=== PATIENT | male | born 1960 | race Caucasian/White ===

== ENCOUNTER → 2022-02-10 07:36 | Outpatient (REF) | payer OTHER, SELFPAY ==
--- NOTE | 2022-02-10 07:41 | CA_ITS ---
Transthoracic Echocardiogram Patient (Last, First, Middle): Abner Arriaga P Gender: Male Date of : 1960 Age: 62 Procedure Date: 02/10/2022 Procedure Type: Transthoracic Echocardiogram Location: OP Height: 172.72 cm Weight: 77.11 kg BSA: 1.91 m2 Heart Rate: bpm BP: 133 / 83 mmHg Quality Analyst: MEREDITH Referring MD: Jimmy Weaver [facility] Portfolio Analyst: Audie Tan MD Symptoms: R01.1 - Cardiac murmur, unspecified Study Quality: Adequate ECG Rhythm: Sinus Conclusions: - 1. Normal LV systolic function with impaired relaxation filling pattern 2. Mild aortic regurgitation secondary to ascending aortic pathology 3. Mildly dilated ascending aorta at 4.3 cm 4. Normal RV systolic pressure 5. No pericardial effusion Findings Left Ventricle Normal left ventricular size, thickness, and systolic function. The visually estimated ejection fraction is between 60-65%. Spectral Doppler is indicative of an impaired relaxation filling pattern. E/E prime ratio is between 8 and 15 consistent with indeterminate filling pressures. Right Ventricle Normal right ventricular cavity size and systolic function. Atria Both atria are normal in size. Interatrial shunt cannot be excluded. Aortic Valve Normal aortic valve structure and function. There is no aortic valve stenosis. There is mild aortic valve regurgitation. Mitral Valve Normal mitral valve structure and function. There is trace mitral valve regurgitation. There is no mitral valve stenosis. Pulmonic Valve The pulmonic valve is likely normal. Tricuspid Valve Likely normal tricuspid valve structure and function. There is trace tricuspid valve regurgitation. The right ventricular systolic pressure is normal. The right ventricular systolic pressure is 27 mmHg. Normal right atrial pressure. There is no evidence of pulmonary hypertension. Great Vessels The pulmonary artery was not well visualized. There is mild dilatation of the ascending aorta measuring 4.30 cm. Venous The inferior vena cava is normal in size and collapses greater than 50% with inspiration. Pericardium/Pleural There is no evidence of pericardial effusion. Prior Study Comparison No prior study available for comparison. Measurements 2D Linear Measurements IVSd: 0.86 0.6-0.9/0.6-1.0 cm LVIDd: 4.52 3.9-5.3/4.2-5.9 cm LVIDd Index: 2.37 2.4-3.2/2.2-3.1 cm/m2 LVIDs: 2.73 2.0-3.6 cm LVPWd: 0.92 0.7-1.1 cm LA Diam: 3.70 2.7-3.8/3.0-4.0 cm LAIDs Index: 1.94 1.5-2.3 cm/m2 LV Mass: 163.76 67-162/88-224 g LV Mass Index: 85.74 43-95/49-115 g/m2 LVOT Diam: 1.90 3.0+(-)1.3 cm 2D Systolic Function EF 4C: 59.80 >55% EF 2C: 70.60 >55% EF BiP: 62.50 >55% Mitral Valve MV Pk E: 0.93 MV PK A: 1.02 MV Decel Time: 204.00 E/A: 0.90 E'Lateral: 10.20 E'Medial: 7.51 E/E' Med: 12.30 E/E' Lat: 9.10 PHT: 60.00 MVA PHT: 3.67 Decel Mesa: 4.54 Aortic Valve AoV Pk Reinaldo: 1.45 AoV Mn Reinaldo: 0.89 AoV VTI: 0.34 AoV Pk Grad: 8.00 Aov Mn Grad: 4.00 PIYUSH Cont.VTI: 2.10 AI Pk Reinaldo: 4.63 AI Mesa: 1.65 LVOT LVOT Pk Reinaldo: 1.07 LVOT Mn Reinaldo: 0.66 LVOT VTI: 0.25 LVOT Pk Grad: 5.00 LVOT Mn Grad: 2.00 LVOT Diam: 1.90 LVOT Area: 2.84 Diastolic Function MV Pk E: 0.93 MV Pk A: 1.02 E/A: 0.90 E'Medial: 7.51 E/E' Med: 12.30 E' Laterial: 10.20 E/E' Lat: 9.10 Right Ventricle TAPSE (mm): 26.30 TVS' Reinaldo: 10.20 Tricuspid Valve TR Pk Reinaldo: 2.43 TR Pk Grad: 24.00 RA Press: 3.00 RVSP: 27.00 Great Vessels Aorta Sinus of Valsalva: 3.45 2.0-3.[address] [place]: 3.18 1.7-3.4 cm Ao Asc: 4.30 2.1-3.4 cm Ao Arch: 3.30 Updated in Other Vendor System with Status of Final Audie Tan MD electronically signed on 02/10/2022 11:37:46 AM with status of Final
== END ==
LOC: HO.CARD 07:36
PROVIDERS: Visit Provider Nurse Practitioner Family
DX: R01.1 Cardiac murmur, unspecified (principal)
CPT/HCPCS: 93306

== ENCOUNTER 2022-09-30 09:05 | Outpatient (REF) | payer OTHER, SELFPAY ==
[2022-09-30 11:03] LABS: Appearance Urine Clear; Color Urine Yellow; Glucose Urine UA Negative (Negative); Leukocyte Esterase Urine Negative (Negative); Nitrite Urine Negative (Negative); PH 7.5 (5.0-9.0); Specific Gravity - Urine <= 1.005 (1.005-1.025); Urine Blood Negative (Negative); Urine Ketones Negative (Negative); Urine Protein Negative (Neg-Trace)
[2022-09-30 11:11] LABS: MANUAL DIFF FLAG NO
[2022-09-30 11:40] LABS: Basophils Percent Auto 0.9 % (0-2); Eosinophils Absolute Auto 0.2 X10*3/uL (0.0-0.4); Hematocrit 46.5 % (42.0-52.0); Hemoglobin 15.6 g/dl (14.0-18.0); Imm Gran Abs Auto 0.01 X10*3/uL (0.00-0.03); Imm Gran Pct Auto 0.2 % (0.0-0.4); Lymphocytes Absolute Auto 1.7 X10*3/uL (1.2-4.9); Lymphocytes Percent Auto 39.6 % (20-40); Mean Corpuscular HGB Conc 33.5 g/dl (31.0-36.0); Mean Corpuscular Hemoglobin 32.2 pg (27.0-33.0); Mean Corpuscular Volume 96.1 fL (80.0-98.0); Mean Platelet Volume 9.8 fL (9.4-12.4); Monocytes Absolute Auto 0.4 X10*3/uL (0.1-1.2); Neutrophils Absolute Auto 1.9 x10*3/uL (2.0-8.3); Neutrophils Percent Auto 44.3 % (45-73); Platelet Count 258 X10*3/uL (160-400); Red Blood Count 4.84 X10*6/uL (4.60-5.80); Red Cell Distribution Width 12.3 % (11.0-16.0); White Blood Count 4.2 X10*3/uL (4.8-10.8)
[2022-09-30 12:01] LABS: Alanine Aminotransferase 52 U/L (0-40); Albumin Level 4.7 g/dL (3.5-5.0); Alkaline Phosphatase 47 U/L (39-117); Anion Gap 14 (12-20); Aspartate Amino Transferase 36 U/L (5-37); Bilirubin Total 1.3 mg/dL (0.0-1.0); Blood Urea Nitrogen 14 mg/dL (9-16); Calcium 9.3 mg/dL (8.4-10.2); Carbon Dioxide 27 mmol/L (22-29); Chloride 104 mmol/L (96-108); Cholesterol 240 mg/dL; Estimated Glomerular Filt Rate > 60; Glucose Fasting 96 mg/dL (60-99); HDL Cholesterol 50 mg/dL; LDL Cholesterol Calculated 170 mg/dl; Potassium 4.9 mmol/L (3.3-5.1); Sodium 140 mmol/L (135-145); Total Protein 7.1 g/dL (6.5-8.0); Triglycerides 101 mg/dL
[2022-09-30 12:05] LABS: Prostate Specific Antigen Scr 1.69 ng/mL (<0.05-4.0); TSH reflex Free T4 1.85 uIU/mL (0.32-4.0)
== END 2022-09-30 09:06 | disposition home or self-care (01) ==
LOC: HO.HMGCLDS 09:05
PROVIDERS: PCP Nurse Practitioner Family; Visit Provider Nurse Practitioner Family
DX: Z00.00 Encounter for general adult medical examination without abnormal findings (principal); Z12.5 Encounter for screening for malignant neoplasm of prostate; E78.5 Hyperlipidemia, unspecified; I10 Essential (primary) hypertension
CPT/HCPCS: 36415; 80053; 80061; 81003; 84153; 84443; 85025

== ENCOUNTER 2022-10-09 08:47 | Outpatient (REF) | payer OTHER, SELFPAY ==
--- NOTE | ~2022-10-09 | US_ITS ---
EXAMINATION: US ABDOMEN COMPLETE CLINICAL INFORMATION: Elevated liver enzymes. COMPARISON: None available. TECHNIQUE: Real-time imaging of the abdominal viscera. FINDINGS: PANCREAS: The head and body appear normal. Details obscured by bowel gas. ABDOMINAL AORTA: Mild atherosclerosis. No aneurysm. INFERIOR VENA CAVA: Visualized portions are normal. LIVER: The liver is normal in size. The liver contour is normal. There is diffuse increased liver parenchymal echogenicity, consistent with hepatic steatosis. There is a 1.4 cm mass in the inferior left hepatic lobe of uncertain etiology. There is no intrahepatic biliary duct dilatation seen. GALLBLADDER: Normal. The gallbladder is physiologically distended without evidence of stones, sludge, wall thickening or pericholecystic fluid. COMMON BILE DUCT: Normal in caliber measuring 0.35 cm in diameter. RIGHT KIDNEY: Normal. No hydronephrosis. No renal calculi or focal parenchymal lesions. The kidney measures 11.4 cm in maximum dimension. LEFT KIDNEY: Normal. No hydronephrosis. No renal calculi or focal parenchymal lesions. The kidney measures 10.5 cm in maximum dimension. SPLEEN: Normal. The spleen measures 10.2 cm in maximum dimension. FREE FLUID: None. US/US abdomen complete IMPRESSION: Fatty liver. 1.4 cm mass inferior left hepatic lobe of uncertain etiology. It is not a simple cyst. Recommend further evaluation with MRI abdomen without and with contrast.
== END 2022-10-09 08:48 | disposition home or self-care (01) ==
LOC: HO.HMGCX 08:47
PROVIDERS: PCP Nurse Practitioner Family; Visit Provider Nurse Practitioner Family
DX: R74.8 Abnormal levels of other serum enzymes (principal)
CPT/HCPCS: 76700

== ENCOUNTER 2022-10-21 08:01 | Outpatient (REF) | payer OTHER, SELFPAY ==
--- NOTE | ~2022-10-21 | MR_ITS ---
EXAMINATION: MR ABDOMEN WITHOUT AND WITH CONTRAST CLINICAL INFORMATION: Hepatomegaly and elevated liver enzymes. Follow-up liver lesion seen on ultrasound. COMPARISON: Abdominal ultrasound September 2022 TECHNIQUE: MR abdomen was performed without and with use of 8 mL intravenous Gadavist gadolinium contrast. Postcontrast images are performed in multiphase dynamic sequences. Imaging was performed in 3 planes. FINDINGS: LUNG BASES: The visualized lung bases are unremarkable. LIVER, GALLBLADDER, AND BILIARY TREE: The liver is normal in size and contour. There is signal loss in the liver on out of phase sequences suggestive of mild fatty infiltration. There is focal fatty sparing seen in the periportal region and adjacent to the gallbladder. There are 3 liver lesions suggestive of benign hemangiomas. These are low signal on T1, high signal on T2 weighted sequences and demonstrate delayed peripheral puddling enhancement. These measure 1.4 cm high in the left lobe of the liver, 2.3 x 2 cm in the posterior segment of the right lobe of the liver near the caudate lobe and 1 cm in the lateral segment of the left lobe of the liver near the falciform ligament. There are probably additional smaller hemangiomas, for example 3 x 7 mm in the posterior segment of the right lobe axial image 27 series 102 postcontrast and medial segment of the left lobe of the liver near the also performed recommend measuring 4 mm for example axial image 34 postcontrast. No suspicious liver lesion. Normal gallbladder. No biliary duct dilatation. PANCREAS: Unremarkable. SPLEEN: Normal. ADRENAL GLANDS: Normal. KIDNEYS AND URETERS: There are bilateral renal cysts. Largest cyst is a 1 x 1.5 cm peripelvic cyst in the upper pole of the left kidney. No imaging follow-up recommended. The kidneys are otherwise normal. GASTROINTESTINAL TRACT: No bowel obstruction. No ascites or fluid collection. ABDOMINAL WALL: No significant hernia is appreciated. LYMPH NODES: No lymphadenopathy. VASCULAR: Unremarkable. OSSEOUS STRUCTURES: Marrow signal normal. MR/MR abdomen wo/w con IMPRESSION: Mild fatty infiltration of the liver. Multiple liver hemangiomas. No suspicious liver lesion seen.
== END 2022-10-21 08:02 | disposition home or self-care (01) ==
LOC: HO.MRI 08:01
PROVIDERS: PCP Nurse Practitioner Family; Visit Provider Nurse Practitioner Family
DX: R16.0 Hepatomegaly, not elsewhere classified (principal)
CPT/HCPCS: 74183; A9585

== ENCOUNTER 2023-01-28 07:27 | Outpatient (AMB) | payer OTHER, SELFPAY ==
[2023-01-28 07:38] VITALS: BP 162/80; PULSE 56; O2SAT 96; BMI 26.4
--- NOTE | 2023-01-28 07:38 | MHC.PC.OV ---
Vital Signs 01/28/23 07:38 Height 5 ft 8 in Weight 173 lb 6 oz BMI 26.4 BP 162/80 H Blood Pressure Location Rt brachial Position Sitting Pulse 56 Pulse Source Pulse Oximeter Pulse Oximetry (%) 96 Oxygen Delivery Method Room Air Intake Visit Reasons: PE Allergies No Known Allergies Allergy (Verified 01/28/23 08:38) Medication List - Last Reconciled 01/28/23 by Jimmy Weaver, [employer]- rosuvastatin 5 mg PO DAILY Tobacco use date assessed: 01/27/22 HPI PE HPI Details Pt is here for a PE. Will order labs. Colon screen is up to date. PSA is up to date. HTN: Pt reports that his blood pressure is in the 130s/70s at home. Denies chest pain, shortness of breath, headache, dizziness, and blurred vision. PFSH Social History Housing: House Patient Tobacco Use Status: Never used Tobacco e-Cigarette/Vaping Use: Never Used Second Hand Smoke Exposure: No service: No Current occupational status: employed Current occupation: [employer] Current occupational exposures/hazards: Yes Cognitive needs: No Hearing needs: No Vision needs: No Questionnaire Thrive Questionnaire Date Thrive assessed: 01/27/22 GILDARDO-7 AMB Questionnaire GILDARDO-7 Date GILDARDO - 7 assessed: 01/27/22 Source: Developed by Drs. Yovany Prather, Caitlyn Landis, Josué Pretty and colleagues, with an educational vernon from [employer]. Review of Systems Const Denies chills and Denies fever(s) Eyes Denies blurry vision ENT Denies vertigo, Denies dizziness and Denies sore throat Card Denies chest pain at rest, Denies chest pain with activity, Denies diaphoresis, Denies dyspnea and Denies dyspnea on exertion Resp Denies cough, Denies dyspnea, Denies dyspnea on exertion and Denies wheezing GI Denies abdominal pain, Denies melena, Denies hematochezia, Denies constipation, Denies diarrhea and Denies loose stools Denies hematuria Musc Denies numbness and Denies tingling Skin/Breast Denies lesions Neuro Denies vertigo, Denies dizziness, Denies numbness and Denies tingling Psych Denies anxiety, Denies depression, Denies homicidal ideation, Denies suicidal ideation and Denies other (substance abuse) Aller/Immun Denies wheezing Physical exam (Primary Care) Vital Signs: Last Vital Signs Pulse 56 01/28/23 07:38 BP 162/80 H 01/28/23 07:38 Pulse Ox 96 01/28/23 07:38 Oxygen Delivery Method Room Air 01/28/23 07:38 BMI result Body Mass Index 26.4 Tobacco/Smoking Status: Tobacco use Status Tobacco use date assessed 01/27/22 01/28/23 07:45 Patient Tobacco Use Status Never used Tobacco 01/28/23 07:45 e-Cigarette/Vaping Use Never Used 01/28/23 07:45 Thrive Assessment: Date of Thrive Assessment Date Thrive assessed 01/27/22 01/28/23 07:45 Const General: cooperative Nutritional Appearance: well nourished Orientation/consciousness: patient oriented x3 HENMT Head: Yes normal to inspection, Yes normocephalic and Yes atraumatic Ears: TM's normal bilaterally Eyes General: appearance normal, both eyes and all related structures Alignment and Position: alignment normal and position normal Neck Neck: Yes normal visual inspection and Yes no lymphadenopathy Thyroid: Thyroid normal Resp Effort & Inspection: normal respiratory effort Auscultation: clear to auscultation bilaterally Cardio Rate: regular rate Rhythm: regular rhythm Heart sounds: S1 normal heart sound present, S2 normal heart sound present and Murmur heart sound present systolic GI Palpation (GI): Soft to palpation and nontender Auscultation: normal bowel sounds Male General Exam: Yes normal external exam Penis: normal penis Scrotum: scrotum normal, testes descended bilaterally and no inguinal hernias Testes: no testicular mass Skin Rashes: no rashes Neuro General: patient oriented x3, moves all extremities, no focal motor deficits and deep tendon reflexes 2+ bilaterally Romberg Test: Negative Psych Appearance: grossly normal Mental Status: mental status grossly normal Speech and movement: Normal speech and movement present Affect: normal affect Attitude: cooperative Thought process: Normal thought process present Thought content: Normal thought content present Insight: Good insight present (Psych) Judgement: Good judgement present (Psych) Assessment and Plan Assessment & Plan (1) Physical exam: Code(s): Z00.00 - Encounter for general adult medical examination without abnormal findings Plan: Labs ordered (2) HTN (hypertension): Code(s): I10 - Essential (primary) hypertension (3) Aortic dilatation: Code(s): I77.819 - Aortic ectasia, unspecified site (4) Systolic murmur: Code(s): R01.1 - Cardiac murmur, unspecified Plan The patient agreed to the use of a pediatrician/medical doctor for this encounter. Scribed for RONDA Chan by Briseida العلي pediatrician/medical doctor, on 01/28/2023 at 07:55 EST. Orders: Orders Comprehensive [place]. Panel Fast Today Z00.00 - Encounter for general adult medical examination without abnormal findings Lipid Panel Today Z00.00 - Encounter for general adult medical examination without abnormal findings TSH reflex Free T4 Today Z00.00 - Encounter for general adult medical examination without abnormal findings Complete Blood Count Auto Diff Today Z00.00 - Encounter for general adult medical examination without abnormal findings UA CC w/rflx Micro + Cult Today Z00.00 - Encounter for general adult medical examination without abnormal findings CA echo transthoracic complete 11 Months I10 - Essential (primary) hypertension, I77.819 - Aortic ectasia, unspecified site, R01.1 - Cardiac murmur, unspecified Coding Level of Care Code Est Pt Prev Care 40-64y([id number]) Diagnoses Physical exam Z00.00 HTN (hypertension) I10 Aortic dilatation I77.819 Systolic murmur R01.1
== END 2023-01-28 08:05 | disposition home or self-care (01) ==
PROVIDERS: Visit Provider Nurse Practitioner Family
DX: Z00.00 Encounter for general adult medical examination without abnormal findings (principal); I10 Essential (primary) hypertension; I77.819 Aortic ectasia, unspecified site; R01.1 Cardiac murmur, unspecified
CPT/HCPCS: 99396

== ENCOUNTER 2023-01-28 08:05 | Outpatient (REF) | payer OTHER, SELFPAY ==
[2023-01-28 11:19] LABS: MANUAL DIFF FLAG NO
[2023-01-28 11:29] LABS: Appearance Urine Clear; Color Urine Yellow; Glucose Urine UA Negative (Negative); Leukocyte Esterase Urine Negative (Negative); Nitrite Urine Negative (Negative); PH 5.5 (5.0-9.0); UMIC TRIGGER UACC YES; Urine Blood Trace (Negative); Urine Ketones Negative (Negative); Urine Protein Negative (Neg-Trace)
[2023-01-28 11:33] LABS: Bacteria Urine None Seen (None Seen); Hyaline Casts Urine 0-2 /LPF (0-2); RBC Urine 0-2 /HPF (0-2); Squamous Epithelial Cell Urine 0-2 /HPF (0-2); WBC Urine 0-5 /HPF (0-5)
[2023-01-28 11:34] LABS: Basophils Percent Auto 0.9 % (0-2); Eosinophils Absolute Auto 0.2 X10*3/uL (0.0-0.4); Eosinophils Percent Auto 3.8 % (0-4); Hemoglobin 15.1 g/dl (14.0-18.0); Imm Gran Abs Auto 0.01 X10*3/uL (0.00-0.03); Imm Gran Pct Auto 0.2 % (0.0-0.4); Lymphocytes Absolute Auto 1.7 X10*3/uL (1.2-4.9); Lymphocytes Percent Auto 36.8 % (20-40); Mean Corpuscular HGB Conc 33.6 g/dl (31.0-36.0); Mean Corpuscular Hemoglobin 31.5 pg (27.0-33.0); Mean Corpuscular Volume 93.8 fL (80.0-98.0); Mean Platelet Volume 9.7 fL (9.4-12.4); Monocytes Absolute Auto 0.4 X10*3/uL (0.1-1.2); Monocytes Percent Auto 7.5 % (2-11); Neutrophils Absolute Auto 2.4 x10*3/uL (2.0-8.3); Neutrophils Percent Auto 50.8 % (45-73); Platelet Count 269 X10*3/uL (160-400); Red Cell Distribution Width 11.9 % (11.0-16.0); White Blood Count 4.7 X10*3/uL (4.8-10.8)
[2023-01-28 12:07] LABS: Alanine Aminotransferase 35 U/L (0-40); Albumin Level 4.5 g/dL (3.5-5.0); Alkaline Phosphatase 45 U/L (39-117); Anion Gap 12 (12-20); Aspartate Amino Transferase 31 U/L (5-37); Bilirubin Total 1.1 mg/dL (0.0-1.0); Blood Urea Nitrogen 16 mg/dL (9-16); Calcium 9.4 mg/dL (8.4-10.2); Carbon Dioxide 27 mmol/L (22-29); Chloride 105 mmol/L (96-108); Cholesterol 189 mg/dL; Estimated Glomerular Filt Rate > 60; Glucose Fasting 85 mg/dL (60-99); HDL Cholesterol 47 mg/dL; LDL Cholesterol Calculated 121 mg/dl; Potassium 4.1 mmol/L (3.3-5.1); Sodium 140 mmol/L (135-145); Total Protein 7.3 g/dL (6.5-8.0); Triglycerides 108 mg/dL
[2023-01-28 12:30] LABS: TSH reflex Free T4 2.07 uIU/mL (0.32-4.0)
== END 2023-01-28 08:06 | disposition home or self-care (01) ==
LOC: HO.HMGCLDS 08:05
PROVIDERS: PCP Nurse Practitioner Family; Visit Provider Nurse Practitioner Family
DX: Z00.00 Encounter for general adult medical examination without abnormal findings (principal); E78.5 Hyperlipidemia, unspecified; R31.29 Other microscopic hematuria
CPT/HCPCS: 36415; 80053; 80061; 81001; 84443; 85025

== ENCOUNTER 2023-03-20 08:28 | Outpatient (REF) | payer OTHER, SELFPAY | END 2023-03-20 08:29 | disposition home or self-care (01) | LOC: HO.HMGCLDS 08:28 | PROVIDERS: PCP Nurse Practitioner Family; Visit Provider Nurse Practitioner Family | DX: R31.29 Other microscopic hematuria (principal) | CPT/HCPCS: 81001; 87086; 88112 ==

== ENCOUNTER → 2023-04-23 08:16 | Outpatient (REF) | payer OTHER, SELFPAY ==
--- NOTE | 2023-04-23 08:18 | CA_ITS ---
Transthoracic Echocardiogram Patient (Last, First, Middle): Abner Arriaga P Gender: Male Date of : 1960 Age: 63 Procedure Date: 04/23/2023 Procedure Type: Transthoracic Echocardiogram Location: OP Height: 172.72 cm Weight: 77.11 kg BSA: 1.91 m2 Heart Rate: 50 bpm BP: 124 / 80 mmHg Vp Strategy: SB Referring MD: Jimmy Weaver [facility] Plant Protection Officer: Audie Tan MD Symptoms: I77.819 - Aortic ectasia, unspecified site Study Quality: Adequate ECG Rhythm: Bradycardia Conclusions: - 1. Normal LV ejection fraction of 60 65% with grade 1 diastolic dysfunction 2. Mild aortic regurgitation 3. Mildly dilated ascending aorta at 4.3 cm 4. Normal RV systolic pressure 5. No pericardial effusion Findings Left Ventricle Normal left ventricular size, thickness, and systolic function. The visually estimated ejection fraction is between 60-65%. Spectral Doppler is indicative of an impaired relaxation filling pattern. E/E prime ratio is <8, consistent with normal filling pressures. Evidence suggests grade I (mild) diastolic dysfunction. Right Ventricle Normal right ventricular cavity size and systolic function. Atria The left atrium is likely dilated. Interatrial shunt cannot be excluded. The right atrium is normal in size. Aortic Valve There is mild calcification of the aortic valve. There is no aortic valve stenosis. There is mild aortic valve regurgitation. Mitral Valve Normal mitral valve structure and function. There is trace mitral valve regurgitation. There is no mitral valve stenosis. Pulmonic Valve The pulmonic valve is likely normal. Tricuspid Valve Normal tricuspid valve structure. There is mild tricuspid valve regurgitation. The right ventricular systolic pressure is normal. The right ventricular systolic pressure is 27 mmHg. Normal right atrial pressure. Great Vessels The pulmonary artery was not well visualized. There is mild dilatation of the ascending aorta measuring 4.30 cm. Venous The inferior vena cava is normal in size and collapses greater than 50% with inspiration. Pericardium/Pleural There is no evidence of pericardial effusion. Prior Study Comparison No significant change compared to prior study dated: 02/10/2023. Measurements 2D Linear Measurements IVSd: 0.99 0.6-0.9/0.6-1.0 cm LVIDd: 4.29 3.9-5.3/4.2-5.9 cm LVIDd Index: 2.25 2.4-3.2/2.2-3.1 cm/m2 LVIDs: 3.04 2.0-3.6 cm LVPWd: 0.83 0.7-1.1 cm LA Diam: 3.90 2.7-3.8/3.0-4.0 cm LAIDs Index: 2.04 1.5-2.3 cm/m2 LV Mass: 186.96 67-162/88-224 g LV Mass Index: 97.88 43-95/49-115 g/m2 LVOT Diam: 2.00 3.0+(-)1.3 cm 2D Systolic Function EF 4C: 59.80 >55% Mitral Valve MV Pk E: 0.71 MV PK A: 0.82 MV Decel Time: 246.00 E/A: 0.90 E'Lateral: 9.46 E'Medial: 7.72 E/E' Med: 9.20 E/E' Lat: 7.50 PHT: 72.00 MVA PHT: 3.06 Decel Deuel: 2.89 Aortic Valve AoV Pk Reinaldo: 1.45 AoV Mn Reinaldo: 0.92 AoV VTI: 0.33 AoV Pk Grad: 8.00 Aov Mn Grad: 4.00 PIYUSH Cont.VTI: 2.39 AI Pk Reinaldo: 4.80 AI Deuel: 1.76 LVOT LVOT Pk Reinaldo: 1.13 LVOT Mn Reinaldo: 0.72 LVOT VTI: 0.25 LVOT Pk Grad: 5.00 LVOT Mn Grad: 3.00 LVOT Diam: 2.00 LVOT Area: 3.14 Diastolic Function MV Pk E: 0.71 MV Pk A: 0.82 E/A: 0.90 E'Medial: 7.72 E/E' Med: 9.20 E' Laterial: 9.46 E/E' Lat: 7.50 Right Ventricle TAPSE (mm): 24.80 TVS' Reinaldo: 11.20 Tricuspid Valve TR Pk Reinaldo: 2.46 TR Pk Grad: 24.00 RA Press: 3.00 RVSP: 27.00 Great Vessels Aorta Sinus of Valsalva: 3.60 2.0-3.5 cm Ao Asc: 4.30 2.1-3.4 cm Ao Arch: 3.40 Ao Desc: 1.50 Pulmonary Veins Pulm Vein S/D 1.40 Pulmonary Valve PV Pk Reinaldo: 2.11 PV Min Reinaldo: 1.30 Peak PV Grad: 18.00 PV Mn Grad: 8.00 Shunting QP:QS: 0.80 Updated in Other Vendor System with Status of Final Audie Tan MD electronically signed on 04/24/2023 1:13:12 PM with status of Final
== END ==
LOC: HO.CARD 08:16
PROVIDERS: PCP Nurse Practitioner Family; Visit Provider Nurse Practitioner Family
DX: R01.1 Cardiac murmur, unspecified (principal); I10 Essential (primary) hypertension; I77.819 Aortic ectasia, unspecified site
CPT/HCPCS: 93306

== ENCOUNTER → 2023-04-23 08:18 | Outpatient (BNV) | payer OTHER, SELFPAY | PROVIDERS: PCP Nurse Practitioner Family; Visit Provider Internal Medicine Cardiovascular Disease | DX: I35.1 Nonrheumatic aortic (valve) insufficiency (principal) | CPT/HCPCS: 93306 ==

== ENCOUNTER 2023-04-27 08:55 | Outpatient (AMB) | payer OTHER, SELFPAY ==
--- NOTE | 2023-04-27 08:55 | MHC.OFFVIS ---
Intake Intake Visit Reasons: Other microscopic hematuria Intake Note: New Patient presents for initial visit for microscopic hematuria Urology Medications: none Blood Thinner: none Emt Intermediate Required: No Accompanied by: Self / Same As Patient Allergies No Known Allergies Allergy (Verified 04/27/23 09:26) Medication List - Last Reconciled 04/27/23 by RONDA Barajas rosuvastatin 5 mg PO DAILY HPI HPI Comments History of Present Illness Details Abner is a very pleasant 63-year-old male patient of Dr. Smith. He has a past medical history of dyslipidemia. He presents to the office today as a new patient for microscopic hematuria. In discussion with the patient today reports to be doing and feeling well. He reports having had two urinalysis's one noting microscopic hematuria at which time recommendations were made for urology referral for further assessment evaluation. In assessment of the patient today 1+ microscopic hematuria noted on in office urinalysis. Discussed at length potential causes of microscopic hematuria. Patient denies any known workplace chemical exposure and or smoking history. He denies any bothersome urinary issues or concerns. He denies urinary urgency, urinary frequency, incontinence, nocturia, hematuria, dysuria, foul smelling urine, changes to urinary stream, flank pain, fever, and or chills. He is happy with his current voiding parameters. Discussed further microscopic hematuria workup with imaging, cytology, and in office cystoscopy for further assessment evaluation. In review of patient's chart it appears PSA 10/05--1.7. He discusses losing his mom approximately 20 years ago to bone cancer. 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 He otherwise offers no other issues or concerns at this time. [facility] Social History Housing: House Patient Tobacco Use Status: Never used Tobacco e-Cigarette/Vaping Use: Never Used Second Hand Smoke Exposure: No service: No Current occupational status: employed Current occupation: [employer] Current occupational exposures/hazards: Yes Cognitive needs: No Hearing needs: No Vision needs: No Review of Systems Const All systems reviewed & are unremarkable except as noted in HPI and below Eyes Reports no additional complaints ENT Reports no additional complaints Card Reports as per HPI Resp Reports no additional complaints GI Details: Patient reports having had recent imaging related to liver mass however MRI showed liver hemangioma Reports as per HPI Musc Reports no additional complaints Neuro Reports no additional complaints Psych Reports no additional complaints Endo Reports no additional complaints Leland/Lymph Reports no additional complaints Aller/Immun Reports no additional complaints Physical Exam Const General: cooperative, healthy appearing, comfortable, no acute distress, well developed, alert and awake Orientation/consciousness: patient oriented x3 Limitations: no limitations HEENT Head: Yes normal to inspection, Yes normocephalic and Yes atraumatic Ears: hearing grossly normal bilaterally Eyes General: appearance normal, both eyes and all related structures Neck Neck: Yes normal visual inspection and Yes trachea midline Chest Chest palpation & inspection: normal inspection of the chest Resp Effort & Inspection: normal respiratory effort and able to speak in complete sentences Cardio Rate: regular rate GI Inspection: Yes normal to inspection General: Yes no CVA tenderness Back/Spine/Pelvis Back: no CVA tenderness Skin General skin exam: no rashes or lesions noted Neuro General: patient oriented x3 Extrem General: Yes normal to inspection Psych Appearance: grossly normal and well kempt Mental Status: mental status grossly normal Speech and movement: Normal speech and movement present and Clear speech present Affect: normal affect Attitude: cooperative Thought process: Normal thought process present Thought content: Normal thought content present Insight: Good insight present (Psych) Judgement: Good judgement present (Psych) Results AMB Urinalysis, Automated UA Leukoctes 0 Meredith/uL Last Edit by [facility] on 04/27/23 09:11 UA Nitrite Negative Last Edit by [facility] on 04/27/23 09:11 UA Urobilinogen 0.2 mg/dL Last Edit by [facility] on 04/27/23 09:11 UA Protein 0 mg/dL Last Edit by [facility] on 04/27/23 09:11 UA pH 6.0 Last Edit by [facility] on 04/27/23 09:11 UA Blood 25 Jignesh/uL Last Edit by [facility] on 04/27/23 09:11 UA Specific [place] 1.015 Last Edit by [facility] on 04/27/23 09:11 UA Ketone Negative Last Edit by [facility] on 04/27/23 09:11 UA Bilirubin 0 mg/dL Last Edit by Yari Billings on 04/27/23 09:11 UA Glucose 0 mg/dL Last Edit by Yari Billings on 04/27/23 09:11 Results Reviewed Results Reviewed: Laboratory Last Values Urine pH (Auto) 6.0 04/27/23 08:56 Specific [place] (Auto) 1.015 04/27/23 08:56 Urine Protein (Auto) 0 mg/dL 04/27/23 08:56 Glucose (UA)(Auto) 0 mg/dL 04/27/23 08:56 Urine Ketones (Auto) Negative 04/27/23 08:56 Urine Blood (Auto) 25 Jignesh/uL 04/27/23 08:56 Urine Nitrite (Auto) Negative 04/27/23 08:56 Urine Bilirubin (Auto) 0 mg/dL 04/27/23 08:56 Urine Urobilinogen (Auto) 0.2 mg/dL 04/27/23 08:56 Leukocyte Esterase (Auto) 0 Meredith/uL 04/27/23 08:56 Assessment & Plan Assessment & Plan (1) Microscopic hematuria: Code(s): R31.29 - Other microscopic hematuria Plan In office urinalysis results reviewed with the patient today; as noted above; will send for urine cytology. Discussed at length potential causes of microscopic hematuria. Discussed further microscopic hematuria workup with imaging, cytology, and in office cystoscopy for further assessment evaluation. Will move forward with imaging and cytology at this time patient will think about in office cystoscopy Patient denies any bothersome urinary issues or concerns at this time. Patient reports be happy with current voiding parameters. Follow-up in 6-8 weeks with imaging to be completed prior; or sooner with any issues, concerns, and or questions. Orders: Orders Urine Cytology Today R31.29 - Other microscopic hematuria AMB Urinalysis Automated Today Z13.9 - Encounter for screening, unspecified US retroperitoneal comp Today R31.29 - Other microscopic hematuria Patient Instructions: The patient had an opportunity to ask questions regarding the treatment plan. All questions were answered. Physical exam, labs, and imaging were discussed and reviewed in detail. As well as risks, benefits, and discussion of treatment choices. No major barriers to understanding were identified. The patient expressed understanding and agreement with the above treatment plan. The patient was made aware they should contact our office by phone for worsening of their current condition, the appearance of new symptoms, or with any questions or concerns. Compliance is encouraged with any medications and follow up testing that is ordered. It is a privilege to be allowed the opportunity to participate in? your urological care.? Again, if you have any questions or concerns If you have any questions or concerns please do not hesitate to contact me. The office is [phone]. This note is constructed using voice recognition software. While every effort has been made to ensure accuracy wine cellar worker errors may have been included. Yours sincerely, RONDA Barajas Coding Level of Care Code New Pt Level 3 (69944) Diagnoses Microscopic hematuria R31.29
== END 2023-04-27 09:28 | disposition home or self-care (01) ==
PROVIDERS: PCP Nurse Practitioner Family; Visit Provider Nurse Practitioner Family
DX: Z13.9 Encounter for screening, unspecified (principal); R31.29 Other microscopic hematuria
CPT/HCPCS: 99203

== ENCOUNTER 2023-04-27 08:55 | Outpatient (REF) | payer OTHER, SELFPAY ==
[2023-04-27 16:33] LABS: Urine Cytology See Pathology rpt
== END 2023-04-27 08:56 | disposition home or self-care (01) ==
LOC: HO.LNP 08:55
PROVIDERS: PCP Nurse Practitioner Family; Visit Provider Nurse Practitioner Family
DX: R31.29 Other microscopic hematuria (principal)
CPT/HCPCS: 81003; 88112

== ENCOUNTER 2023-06-10 08:05 | Outpatient (REF) | payer OTHER, SELFPAY ==
--- NOTE | ~2023-06-10 | US_ITS ---
EXAMINATION: US RETROPERITONEAL COMPLETE (RENAL) CLINICAL INFORMATION: Other microscopic hematuria. COMPARISON: MRI abdomen 10/21/2022. Ultrasound abdomen complete 10/09/2022. TECHNIQUE: Real-time imaging of the kidneys and bladder. FINDINGS: RIGHT KIDNEY: 11.2 x 6.6 x 6.8 cm (SAG x AP x TRV). The kidney is normal in size, contour, and echogenicity. Renal cortical thickness is normal. No calculi or focal parenchymal lesions. No hydronephrosis. LEFT KIDNEY: 10.0 x 5.6 x 4.5 cm (SAG x AP x TRV). The kidney is normal in size, contour, and echogenicity. Renal cortical thickness is normal. No renal calculi or hydronephrosis. 2 benign Bosniak class I renal cysts are noted, the largest measuring only 1.4 cm which require no additional imaging or follow-up. No solid renal masses are seen. BLADDER: Well distended and normal. Bilateral ureteral jets are demonstrated. Prevoid bladder volume is 316 mL. Postvoid bladder volume is 30.3 mL. PROSTATE: Prostate is enlarged measuring 66 mL. ADDITIONAL FINDINGS: Incidental note is made of an echogenic liver consistent with hepatic steatosis. US/US retroperitoneal comp IMPRESSION: 1. Enlarged 66 mL prostate with 30 mL postvoid residual. 2. Incidentally noted hepatic steatosis.
== END 2023-06-10 08:06 | disposition home or self-care (01) ==
LOC: HO.HMGCX 08:05
PROVIDERS: PCP Nurse Practitioner Family; Visit Provider Nurse Practitioner Family
DX: R31.29 Other microscopic hematuria (principal)
CPT/HCPCS: 76770

== ENCOUNTER 2023-06-17 08:27 | Outpatient (AMB) | payer OTHER, SELFPAY ==
--- NOTE | 2023-06-17 08:35 | MHC.OFFVIS ---
Intake Intake Visit Reasons: 7w/US Intake Note: Patient presents for follow up visit for microscopic hematuria and ultrasound results (imaging 06/10/23) Urology Medications: none Blood Thinner: none Mason Tender Required: No Accompanied by: Self / Same As Patient Allergies No Known Allergies Allergy (Verified 06/17/23 20:58) Medication List - Last Reconciled 06/17/23 by Dinah Quiros POT FEEDER- rosuvastatin 5 mg PO DAILY HPI HPI Comments History of Present Illness Details Abner is a very pleasant 63-year-old male patient of Dr. Smith. He has a past medical history of dyslipidemia. He presents to the office today for follow-up of his microscopic hematuria. Of note, patient was seen approximately 6 weeks ago as a new patient for microscopic hematuria at which time a retroperitoneal ultrasound was ordered and urine was sent for cytology. These results were reviewed with the patient today. Right kidney with no calculi, lesions, and or hydronephrosis noted. Left kidney with no calculi or hydronephrosis. Two benign Bosniak class 1 renal cysts are noted, the largest measuring approximately 1.4 cm which requires no additional follow-up per radiology report. The bladder is well distended and normal. Bilateral ureteral jets are demonstrated. Pre void bladder volume is approximately 315 mL. Postvoid bladder volume is approximately 30 mL. Prostate is enlarged measuring approximately 66 mL. In discussion with the patient today reports to be doing and feeling well. Discussed at length potential causes for microscopic hematuria and further workup with in office cystoscopy versus surveillance monitoring. Cytology 05/07 noted atypical cells cytology from 04/06 negative for high-grade urethral cell carcinoma. Patient denies any known workplace chemical exposure and or smoking history. He denies any bothersome urinary issues or concerns. He denies urinary urgency, urinary frequency, incontinence, nocturia, hematuria, dysuria, foul smelling urine, changes to urinary stream, flank pain, fever, and or chills. He is happy with his current voiding parameters. In review of patient's chart it appears PSA 10/05--1.7. In office urinalysis results reviewed with the patient today microscopic hematuria noted. He discusses losing his mom approximately 20 years ago to bone cancer. 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 He otherwise offers no other issues or concerns at this time. [facility] Social History Housing: House Patient Tobacco Use Status: Never used Tobacco e-Cigarette/Vaping Use: Never Used Second Hand Smoke Exposure: No service: No Current occupational status: employed Current occupation: [employer]. Current occupational exposures/hazards: Yes Cognitive needs: No Hearing needs: No Vision needs: No Review of Systems Const All systems reviewed & are unremarkable except as noted in HPI and below Eyes Reports no additional complaints ENT Reports no additional complaints Card Reports as per HPI Resp Reports no additional complaints GI Details: Patient reports having had recent imaging related to liver mass however MRI showed liver hemangioma Reports as per HPI Musc Reports no additional complaints Neuro Reports no additional complaints Psych Reports no additional complaints Endo Reports no additional complaints Leland/Lymph Reports no additional complaints Aller/Immun Reports no additional complaints Physical Exam Const General: cooperative, healthy appearing, comfortable, no acute distress, well developed, alert and awake Orientation/consciousness: patient oriented x3 Limitations: no limitations HEENT Head: Yes normal to inspection, Yes normocephalic and Yes atraumatic Ears: hearing grossly normal bilaterally Eyes General: appearance normal, both eyes and all related structures Neck Neck: Yes normal visual inspection and Yes trachea midline Chest Chest palpation & inspection: normal inspection of the chest Resp Effort & Inspection: normal respiratory effort and able to speak in complete sentences Cardio Rate: regular rate GI Inspection: Yes normal to inspection General: Yes no CVA tenderness Back/Spine/Pelvis Back: no CVA tenderness Skin General skin exam: no rashes or lesions noted Neuro General: patient oriented x3 Extrem General: Yes normal to inspection Psych Appearance: grossly normal and well kempt Mental Status: mental status grossly normal Speech and movement: Normal speech and movement present and Clear speech present Affect: normal affect Attitude: cooperative Thought process: Normal thought process present Thought content: Normal thought content present Insight: Good insight present (Psych) Judgement: Good judgement present (Psych) Results AMB Urinalysis, Automated UA Leukoctes 0 Meredith/uL Last Edit by Yari Billings on 06/17/23 08:48 UA Nitrite Negative Last Edit by Yari Billings on 06/17/23 08:48 UA Urobilinogen 0.2 mg/dL Last Edit by Yari Billings on 06/17/23 08:48 UA Protein 0 mg/dL Last Edit by Yari Billings on 06/17/23 08:48 UA pH 6.0 Last Edit by Yari Billings on 06/17/23 08:48 UA Blood 25 Jignesh/uL Last Edit by Yari Billings on 06/17/23 08:48 UA Specific [place] 1.015 Last Edit by Yari Billings on 06/17/23 08:48 UA Ketone Negative Last Edit by Yari Billings on 06/17/23 08:48 UA Bilirubin 0 mg/dL Last Edit by Yari Billings on 06/17/23 08:48 UA Glucose 0 mg/dL Last Edit by Yari Billings on 06/17/23 08:48 Results Reviewed Results Reviewed: Laboratory Last Values Urine pH (Auto) 6.0 06/17/23 08:42 Specific [place] (Auto) 1.015 06/17/23 08:42 Urine Protein (Auto) 0 mg/dL 06/17/23 08:42 Glucose (UA)(Auto) 0 mg/dL 06/17/23 08:42 Urine Ketones (Auto) Negative 06/17/23 08:42 Urine Blood (Auto) 25 Jignesh/uL 06/17/23 08:42 Urine Nitrite (Auto) Negative 06/17/23 08:42 Urine Bilirubin (Auto) 0 mg/dL 06/17/23 08:42 Urine Urobilinogen (Auto) 0.2 mg/dL 06/17/23 08:42 Leukocyte Esterase (Auto) 0 Meredith/uL 06/17/23 08:42 Date of Service: 06/10/23 EXAMINATION: US RETROPERITONEAL COMPLETE (RENAL) FINDINGS: RIGHT KIDNEY: 11.2 x 6.6 x 6.8 cm (SAG x AP x TRV). The kidney is normal in size, contour, and echogenicity. Renal cortical thickness is normal. No calculi or focal parenchymal lesions. No hydronephrosis. LEFT KIDNEY: 10.0 x 5.6 x 4.5 cm (SAG x AP x TRV). The kidney is normal in size, contour, and echogenicity. Renal cortical thickness is normal. No renal calculi or hydronephrosis. 2 benign Bosniak class I renal cysts are noted, the largest measuring only 1.4 cm which require no additional imaging or follow-up. No solid renal masses are seen. BLADDER: Well distended and normal. Bilateral ureteral jets are demonstrated. Prevoid bladder volume is 316 mL. Postvoid bladder volume is 30.3 mL. PROSTATE: Prostate is enlarged measuring 66 mL. ADDITIONAL FINDINGS: Incidental note is made of an echogenic liver consistent with hepatic steatosis. IMPRESSION: 1. Enlarged 66 mL prostate with 30 mL postvoid residual. 2. Incidentally noted hepatic steatosis. Assessment & Plan Assessment & Plan (1) Microscopic hematuria: Code(s): R31.29 - Other microscopic hematuria (2) Renal cyst: Code(s): N28.1 - Cyst of kidney, acquired (3) Enlarged prostate: Code(s): N40.0 - Benign prostatic hyperplasia without lower urinary tract symptoms Plan In office urinalysis results reviewed with the patient today; as noted above; will send for urine cytology. Discussed at length potential causes of microscopic hematuria. Discussed further microscopic hematuria workup with in office cystoscopy for further assessment evaluation versus surveillance monitoring. Patient would like to continue with surveillance monitoring at this time. Patient denies any bothersome urinary issues or concerns at this time. Patient reports be happy with current voiding parameters. Discussed at length potential causes for renal cyst. Follow-up in 1 year; or sooner with any issues, concerns, and or questions. Orders: Orders AMB Urinalysis Automated Today Z13.9 - Encounter for screening, unspecified Urine Cytology Today R31.29 - Other microscopic hematuria Patient Instructions: The patient had an opportunity to ask questions regarding the treatment plan. All questions were answered. Physical exam, labs, and imaging were discussed and reviewed in detail. As well as risks, benefits, and discussion of treatment choices. No major barriers to understanding were identified. The patient expressed understanding and agreement with the above treatment plan. The patient was made aware they should contact our office by phone for worsening of their current condition, the appearance of new symptoms, or with any questions or concerns. Compliance is encouraged with any medications and follow up testing that is ordered. It is a privilege to be allowed the opportunity to participate in? your urological care.? Again, if you have any questions or concerns If you have any questions or concerns please do not hesitate to contact me. The office is [phone]. This note is constructed using voice recognition software. While every effort has been made to ensure accuracy meteorologist in charge errors may have been included. Yours sincerely, ANNA Barajas-BC Coding Level of Care Code Est Pt Level 3 (00554) Diagnoses Microscopic hematuria R31.29 Renal cyst N28.1 Enlarged prostate N40.0
== END 2023-06-17 09:06 | disposition home or self-care (01) ==
PROVIDERS: PCP Nurse Practitioner Family; Visit Provider Nurse Practitioner Family
DX: R31.29 Other microscopic hematuria (principal); N28.1 Cyst of kidney, acquired; N40.0 Benign prostatic hyperplasia without lower urinary tract symptoms
CPT/HCPCS: 99213

== ENCOUNTER 2023-06-17 08:27 | Outpatient (REF) | payer OTHER, SELFPAY | END 2023-06-17 08:28 | disposition home or self-care (01) | LOC: HO.LNP 08:27 | PROVIDERS: PCP Nurse Practitioner Family; Visit Provider Nurse Practitioner Family | DX: R31.29 Other microscopic hematuria (principal); N28.1 Cyst of kidney, acquired; N40.0 Benign prostatic hyperplasia without lower urinary tract symptoms | CPT/HCPCS: 81003; 88112 ==

== ENCOUNTER 2024-02-08 08:18 | Outpatient (AMB) | payer OTHER, SELFPAY ==
[2024-02-08 08:31] VITALS: BP 140/90; PULSE 58; O2SAT 97; BMI 28.0
--- NOTE | 2024-02-08 08:31 | A.OFFPC_ITS ---
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 Will order labs. Colon screen is up to date. Due for PSA, will order, sees urology. Denies dribbling with urination, weak stream, and frequent nocturia. Pt's blood pressure is elevated today. Will start losartan 25mg. Will have pt monitor his BP at home and send readings via portal. Denies chest pain, shortness of breath, headache, dizziness, and blurred vision. [facility] Surgical History No pertinent past surgical history Social History Housing: House Patient Tobacco Use Status: Never used Tobacco e-Cigarette/Vaping Use: Never Used Second Hand Smoke Exposure: No service: No Current occupational status: employed Current occupation: [employer]. Current occupational exposures/hazards: Yes Cognitive needs: No Hearing needs: No Vision needs: No Questionnaire PHQ-9 Over the last 2 weeks, how often have you been bothered by any of the following problems? 1. Little interest or pleasure in doing things: not at all 2. Feeling down, depressed, or hopeless: not at all 3. Trouble falling or staying asleep, or sleeping too much: not at all 4. Feeling tired or having little energy: not at all 5. Poor appetite or overeating: not at all 6. Feeling bad about yourself - or that you are a failure or have let yourself or your family down: not at all 7. Trouble concentrating on things, such as reading the newspaper or watching television: not at all 8. Moving or speaking so slowly that other people could have noticed. Or the opposite - being so fidgety or restless that you have been moving around a lot more than usual: not at all 9. Thoughts that you would be better off or of hurting yourself in some way: not at all Total score: 0 Depression Screening Interpretation: Negative Depression Screening Done: Yes 81204 - PHQ-9 Billing: Yes Source: Developed by Drs. Yovany Prather, Caitlyn Landis, Josué Pretty and colleagues, with an educational vernon from [employer]. Thrive Questionnaire Date Thrive assessed: 02/08/24 I am a: Patient What is your living situation today?: I have a steady place to live Within the past 12 months, did the food you bought not last and you didn't have the money to get more?: Never true Within the past 12 months, did you worry whether your food would run out before you got money to buy more?: Never true Do you have trouble paying for medicines?: No Do you have trouble getting transportation to medical appointments?: No Do you have trouble paying your heating and electricity bill?: No Do you have trouble taking care of your child, family member or friend?: No Do you have trouble with day-to-day activities such as bathing, preparing meals, shopping, managing finances, etc.?: No Are you currently unemployed and looking for a job?: No Are you interested in more education?: No Please select the resources that you would like help with: None Currently or been in a relationship where the following occur: No concerns reported THRIVE Score: 0 AUDIT C Alcohol Use Questionnaire (AUDIT-C) 1. How often do you have a drink containing alcohol?: 2-3 times a week 2. How many drinks containing alcohol do you have on a typical day when you are drinking?: 3 or 4 3. How often do you have six or more drinks on one occasion?: Monthly Total Score: 6 Score Reviewed/Action Taken: Yes GILDARDO-7 AMB Questionnaire GILDARDO-7 Date GILDARDO - 7 assessed: 02/08/24 Feeling nervous, anxious, or on edge: 0 = Not at all Not being able to stop or control worryin = Not at all Worrying too much about different things: 0 = Not at all Trouble relaxin = Not at all Being so restless that it is hard to sit still: 0 = Not at all Becoming easily annoyed or irritable: 0 = Not at all Feeling afraid as if something awful might happen: 0 = Not at all Total GILDARDO-7 score (0-4 normal; 5-9 mild; 10-14 moderate; 15-21 severe): 0 Source: Developed by Drs. Yovany Prather, Caitlyn Landis, Josué Pretty and colleagues, with an educational vernon from [employer]. GILDARDO-7 Assessment Billing GILDARDO-7 Assessment Tool: GILDARDO-7 Assessment 67197 Review of Systems Const Denies chills and Denies fever(s) Eyes Denies blurry vision ENT Denies vertigo, Denies dizziness and Denies sore throat Card Denies chest pain at rest, Denies chest pain with activity, Denies diaphoresis, Denies dyspnea and Denies dyspnea on exertion Resp Denies cough, Denies dyspnea, Denies dyspnea on exertion and Denies wheezing GI Denies abdominal pain, Denies melena, Denies hematochezia, Denies constipation, Denies diarrhea and Denies loose stools Denies hematuria Musc Denies numbness and Denies tingling Skin/Breast Denies lesions Neuro Denies vertigo, Denies dizziness, Denies numbness and Denies tingling Psych Denies anxiety, Denies depression, Denies homicidal ideation, Denies suicidal ideation and Denies other (substance abuse) Aller/Immun Denies wheezing Physical exam (Primary Care) Vital Signs: Last Vital Signs Pulse 58 02/08/24 08:31 BP 140/90 H 02/08/24 08:31 Pulse Ox 97 02/08/24 08:31 Oxygen Delivery Method Room Air 02/08/24 08:31 BMI result Body Mass Index 28.0 Tobacco/Smoking Status: Tobacco use Status Tobacco use date assessed 02/08/24 02/08/24 08:33 Patient Tobacco Use Status Never used Tobacco 02/08/24 08:33 e-Cigarette/Vaping Use Never Used 02/08/24 08:33 PHQ-9: PHQ-9 Score PHQ-9: Total score 0 02/08/24 08:54 Depression Screening Interpretation: Negative Thrive Assessment: Date of Thrive Assessment Date Thrive assessed 02/08/24 02/08/24 08:33 Currently or been in a relationship where the following occur: No concerns reported Const General: cooperative Nutritional Appearance: well nourished Orientation/consciousness: patient oriented x3 HENMT Head: Yes normal to inspection, Yes normocephalic and Yes atraumatic Ears: TM's normal bilaterally Eyes General: appearance normal, both eyes and all related structures Alignment and Position: alignment normal and position normal Neck Neck: Yes normal visual inspection and Yes no lymphadenopathy Resp Effort & Inspection: normal respiratory effort Auscultation: clear to auscultation bilaterally Cardio Other: slight murmur to aortic region Rate: regular rate Rhythm: regular rhythm Heart sounds: S1 normal heart sound present, S2 normal heart sound present and Murmur heart sound present GI Palpation (GI): Soft to palpation and nontender Auscultation: normal bowel sounds Male General Exam: Yes normal external exam Penis: normal penis Scrotum: scrotum normal, testes descended bilaterally and no inguinal hernias Testes: no testicular mass Skin Other: bilat superior/dorsal forearms with healing scabbed lesions (ng), no signs of infection Rashes: no rashes Neuro General: patient oriented x3, moves all extremities, no focal motor deficits and deep tendon reflexes 2+ bilaterally Romberg Test: Negative Psych Appearance: grossly normal Mental Status: mental status grossly normal Speech and movement: Normal speech and movement present Affect: normal affect Attitude: cooperative Thought process: Normal thought process present Thought content: Normal thought content present Insight: Good insight present (Psych) Judgement: Good judgement present (Psych) Assessment and Plan Assessment & Plan (1) Screening for colon cancer: Code(s): Z12.11 - Encounter for screening for malignant neoplasm of colon Plan: Referred to GI (2) Physical exam: Code(s): Z00.00 - Encounter for general adult medical examination without abnormal findings Plan: Labs ordered (3) HTN (hypertension): Code(s): I10 - Essential (primary) hypertension Plan: Starting losartan, pt will take his BP at home and record readings, send via portal (4) Enlarged prostate: Code(s): N40.0 - Benign prostatic hyperplasia without lower urinary tract symptoms Plan: PSA ordered Plan drop off BPs from home Orders: Orders Complete Blood Count Auto Diff Today Z00.00 - Encounter for general adult medical examination without abnormal findings TSH reflex Free T4 Today Z00.00 - Encounter for general adult medical examination without abnormal findings UA CC w/rflx Micro + Cult Today Z00.00 - Encounter for general adult medical examination without abnormal findings Comprehensive [place]. Panel Fast Today Z00.00 - Encounter for general adult medical examination without abnormal findings Lipid Panel Today Z00.00 - Encounter for general adult medical examination without abnormal findings Prostate Specific Antigen Scr Today N40.0 - Benign prostatic hyperplasia without lower urinary tract symptoms Referrals Gastroenterology Referral Z12.11 - Encounter for screening for malignant neoplasm of colon Medications: New losartan 25 mg PO DAILY 90 days 90 tabs 0RF Coding Level of Care Code Est Pt Prev Care 40-64y(20732) Diagnoses Screening for colon cancer Z12.11 Physical exam Z00.00 HTN (hypertension) I10 Enlarged prostate N40.0 Additional Codes GILDARDO-7 Assessment Billing - GILDARDO-7 Assessment Tool: GILDARDO-7 Assessment 17375 ([id number])
[2024-02-08 09:12] VITALS: BP 140/90
== END 2024-02-08 09:23 | disposition home or self-care (01) ==
PROVIDERS: PCP Nurse Practitioner Family; Visit Provider Nurse Practitioner Family
DX: Z00.00 Encounter for general adult medical examination without abnormal findings (principal); I10 Essential (primary) hypertension; N40.0 Benign prostatic hyperplasia without lower urinary tract symptoms; Z12.11 Encounter for screening for malignant neoplasm of colon
CPT/HCPCS: 99396

== ENCOUNTER → 2024-05-17 07:55 | Outpatient (REF) | payer OTHER, SELFPAY ==
--- NOTE | 2024-05-17 07:57 | CA_ITS ---
Transthoracic Echocardiogram Patient (Last, First, Middle): Abner Arriaga P Gender: Male Date of : 1960 Age: 64 Procedure Date: 05/17/2024 Procedure Type: Transthoracic Echocardiogram Location: OP Height: 172.72 cm Weight: 77.11 kg BSA: 1.91 m2 Heart Rate: bpm BP: 118 / 56 mmHg Drafter Commercial: Referring MD: Jimmy Weaver [facility] Symptoms: I77.819 - Aortic ectasia, unspecified site Study Quality: Fair ECG Rhythm: Sinus Conclusions: - The left ventricular systolic function is normal. The calculated ejection fraction is 59% by biplane method. - There is mild aortic valve regurgitation. - There is mild dilatation of the ascending aorta measuring 4.20 cm. Findings Left Ventricle Normal left ventricular cavity size. There is normal left ventricular wall thickness. The left ventricular systolic function is normal. The calculated ejection fraction is 59% by biplane method. There is no evidence of regional wall motion abnormalities. Diastolic function is normal for age. Right Ventricle Normal right ventricular cavity size and systolic function. Atria Both atria are normal in size. Aortic Valve There is a normal trileaflet aortic valve. There is no aortic valve stenosis. There is mild aortic valve regurgitation. Mitral Valve The mitral valve appears normal. There is trace mitral valve regurgitation. There is no mitral valve stenosis. Pulmonic Valve The pulmonic valve was not well visualized. Tricuspid Valve There is mild tricuspid valve regurgitation. There is no evidence of pulmonary hypertension. Great Vessels There is mild dilatation of the ascending aorta measuring 4.20 cm. Venous The inferior vena cava is normal in size and collapses greater than 50% with inspiration. Pericardium/Pleural There is no evidence of pericardial effusion. Prior Study Comparison No significant change compared to prior study dated: 04/23/2023. Measurements 2D Linear Measurements IVSd: 1.02 0.6-0.9/0.6-1.0 cm LVIDd: 4.00 3.9-5.3/4.2-5.9 cm LVIDd Index: 2.09 2.4-3.2/2.2-3.1 cm/m2 LVIDs: 2.69 2.0-3.6 cm LVPWd: 1.02 0.7-1.1 cm Ao Root: 3.90 2.1-3.5 cm LA Diam: 3.50 2.7-3.8/3.0-4.0 cm LAIDs Index: 1.83 1.5-2.3 cm/m2 LV Mass: 162.60 67-162/88-224 g LV Mass Index: 85.13 43-95/49-115 g/m2 LVOT Diam: 2.50 3.0+(-)1.3 cm 2D Systolic Function EF 4C: 56.00 >55% EF 2C: 60.30 >55% EF BiP: 58.60 >55% Mitral Valve MV Pk E: 0.90 MV PK A: 0.96 MV Decel Time: 227.00 E/A: 0.90 E'Lateral: 11.10 E'Medial: 5.87 E/E' Med: 15.30 E/E' Lat: 8.10 PHT: 66.00 MVA PHT: 3.33 Decel Sevier: 3.97 Aortic Valve AoV Pk Reinaldo: 1.64 AoV Mn Reinaldo: 1.03 AoV VTI: 0.40 AoV Pk Grad: 11.00 Aov Mn Grad: 5.00 PIYUSH Cont.VTI: 2.97 LVOT LVOT Pk Reinaldo: 1.06 LVOT Mn Reinaldo: 0.66 LVOT VTI: 0.24 LVOT Pk Grad: 4.00 LVOT Mn Grad: 2.00 LVOT Diam: 2.50 LVOT Area: 4.91 Diastolic Function MV Pk E: 0.90 MV Pk A: 0.96 E/A: 0.90 E'Medial: 5.87 E/E' Med: 15.30 E' Laterial: 11.10 E/E' Lat: 8.10 Right Ventricle TAPSE (mm): 31.00 TVS' Reinaldo: 10.00 Tricuspid Valve TR Pk Reinaldo: 2.33 TR Pk Grad: 22.00 RA Press: 3.00 RVSP: 25.00 Great Vessels Aorta Ao Root-2D: 3.90 2.0-3.7 cm Ao Asc: 4.20 2.1-3.4 cm Pulmonary Valve PV Pk Reinaldo: 1.86 Peak PV Grad: 14.00 Updated in Other Vendor System with Status of Final Akin Mckinney MD electronically signed on 05/17/2024 2:39:30 PM with status of Final
== END ==
LOC: HO.CARD 07:55
PROVIDERS: PCP Nurse Practitioner Family; Visit Provider Nurse Practitioner Family
DX: I77.819 Aortic ectasia, unspecified site (principal)
CPT/HCPCS: 93306

== ENCOUNTER → 2024-05-17 07:57 | Outpatient (BNV) | payer OTHER, SELFPAY | PROVIDERS: PCP Nurse Practitioner Family; Visit Provider Internal Medicine | DX: I35.1 Nonrheumatic aortic (valve) insufficiency (principal); I36.1 Nonrheumatic tricuspid (valve) insufficiency | CPT/HCPCS: 93306 ==

== ENCOUNTER 2024-06-07 07:48 | Outpatient (REF) | payer OTHER, SELFPAY ==
[2024-06-07 09:59] LABS: MANUAL DIFF FLAG NO
[2024-06-07 10:08] LABS: Basophils Absolute Auto 0.1 X10*3/uL (0.0-0.2); Eosinophils Absolute Auto 0.2 X10*3/uL (0.0-0.4); Hematocrit 45.9 % (42.0-52.0); Imm Gran Abs Auto 0.01 X10*3/uL (0.00-0.03); Imm Gran Pct Auto 0.2 % (0.0-0.4); Lymphocytes Absolute Auto 1.8 X10*3/uL (1.2-4.9); Mean Corpuscular HGB Conc 32.7 g/dl (31.0-36.0); Mean Corpuscular Hemoglobin 31.2 pg (27.0-33.0); Mean Corpuscular Volume 95.4 fL (80.0-98.0); Mean Platelet Volume 9.6 fL (9.4-12.4); Monocytes Absolute Auto 0.5 X10*3/uL (0.1-1.2); Monocytes Percent Auto 9.7 % (2-11); Neutrophils Absolute Auto 2.7 x10*3/uL (2.0-8.3); Neutrophils Percent Auto 51.1 % (45-73); Platelet Count 290 X10*3/uL (160-400); Red Blood Count 4.81 X10*6/uL (4.60-5.80); White Blood Count 5.3 X10*3/uL (4.8-10.8)
[2024-06-07 10:12] LABS: Appearance Urine Clear; Color Urine Yellow; Glucose Urine UA Negative (Negative); Leukocyte Esterase Urine Negative (Negative); Nitrite Urine Negative (Negative); PH 6.5 (5.0-9.0); UMIC TRIGGER UACC YES; Urine Blood Trace (Negative); Urine Ketones Negative (Negative); Urine Protein Negative (Neg-Trace)
[2024-06-07 10:28] LABS: Alanine Aminotransferase 66 U/L (0-40); Albumin Level 4.5 g/dL (3.5-5.0); Alkaline Phosphatase 51 U/L (39-117); Anion Gap 12 (12-20); Aspartate Amino Transferase 43 U/L (5-37); Bilirubin Total 0.9 mg/dL (0.0-1.0); Blood Urea Nitrogen 15 mg/dL (9-16); Calcium 9.5 mg/dL (8.4-10.2); Carbon Dioxide 28 mmol/L (22-29); Chloride 103 mmol/L (96-108); Cholesterol 204 mg/dL (<200); Estimated Glomerular Filt Rate > 60; Glucose Fasting 94 mg/dL (60-99); HDL Cholesterol 58 mg/dL (>40); LDL Cholesterol Calculated 124 mg/dL (<100); Potassium 4.3 mmol/L (3.3-5.1); Sodium 139 mmol/L (135-145); Total Protein 7.5 g/dL (6.5-8.0); Triglycerides 110 mg/dL (<150)
[2024-06-07 11:35] LABS: TSH reflex Free T4 2.41 uIU/mL (0.32-4.0)
[2024-06-07 11:55] LABS: Bacteria Urine None Seen (None Seen); Hyaline Casts Urine 0-2 /LPF (0-2); RBC Urine 0-2 /HPF (0-2); Squamous Epithelial Cell Urine 0-2 /HPF (0-2); WBC Urine 0-5 /HPF (0-5)
[2024-06-07 12:06] LABS: Prostate Specific Antigen Scr 2.36 ng/mL (<0.05-4.0)
== END 2024-06-07 07:49 | disposition home or self-care (01) ==
LOC: HO.HMGCLDS 07:48
PROVIDERS: PCP Nurse Practitioner Family; Visit Provider Nurse Practitioner Family
DX: Z00.00 Encounter for general adult medical examination without abnormal findings (principal); Z12.5 Encounter for screening for malignant neoplasm of prostate; N40.0 Benign prostatic hyperplasia without lower urinary tract symptoms
CPT/HCPCS: 36415; 80053; 80061; 81001; 84153; 84443; 85025

== ENCOUNTER 2024-06-28 07:46 | Outpatient (AMB) | payer OTHER, SELFPAY ==
--- OUTSIDE RECORDS SUMMARY | 2024-06-28 07:48 | XMS_ITS | Patient Health Record ---
Author Organization [facility] Address [address] [place] [address] Care Team Providers Care Shirt Sorter Name Role Phone EUNICE CHAPMAN Primary Care Provider Yovany Tadeo [phone] REASON FOR REFERRAL No Information MEDICATIONS Medication SIG (Take, Route, Fr equency, Duration) Notes Start Date End Date Status MoviPrep 100 GM as directed Orally a s directed for 1 days 04/07/2014 Active Fish Oil 306 MG Orally Acti ve SOCIAL HISTORY Sex Assigned At : Social History Observation Description Sex Assigned At Unknown PROBLEMS Problem Type ICD Code Onset Dates Problem Status W/U Status Risk SNOMED Code Notes Problem Colon cancer screening (V76.51) Active confirmed Colon cancer screening (657037261) Problem Other specified pre-operative examination (V72.83) Active confirmed Pre-surgery evaluation (129887403) Problem Encounter for long-term (current) use of other medications (V58.69) Active confirmed Long-term current use of drug therapy (130267680) PLAN OF TREATMENT Future Test Test Name Order Date COLONOSCOPY 04/05/2014 Next Appt Details Provider Name:Yovany Kaiser , 08/23/2024 09:50:00 AM, [address], [address], [place], [address], Insurance Providers Payer Name Payer Address Payer Phone Subscriber Number Group Number Insured Name Patient Relationship to Insured Coverage Start Date Coverage End Date [facility] [address] [place] [phone] [id number] PABLO GARCIA Self - patient is the insured MEDICAL (GENERAL) HISTORY Medical History History ICD Code Denies CT,DM,CVA,Lung disease,renal dise ase Surgical History Surgery Date(Month/Year) Varicose vein stripping in the LE
--- NOTE | 2024-06-28 07:49 | A.OFFVIS_ITS ---
Intake Visit Reasons: 1y follow up Intake Note: 1y Follow up Urology Medications: none Blood Thinner: none Biztalk Architect Required: No Allergies No Known Allergies Allergy (Verified 06/28/24 08:22) Medication List - Last Reconciled 06/28/24 by ANNA Barajas-LIZ losartan 25 mg PO DAILY 90 days rosuvastatin 5 mg PO DAILY HPI Comments Details: Abner is a very pleasant 64 year-old male patient of Dr. Smith. He has a past medical history of dyslipidemia. He presents to the office today for follow-up of his microscopic hematuria. In discussion with the patient today reports to be doing and feeling well. He reports no bothersome urinary issues or concerns since his last office visit here a approximately 1 year ago. In office urinalysis results reviewed with the patient today. Trace microscopic hematuria. Patient with a previous retroperitoneal ultrasound 01/04 noting right kidney with no calculi, lesions, and or hydronephrosis noted. Left kidney with no calculi or hydronephrosis. Two benign Bosniak class 1 renal cysts are noted, the largest measuring approximately 1.4 cm which requires no additional follow- up per radiology report. The bladder is well distended and normal. Bilateral ureteral jets are demonstrated. Pre void bladder volume is approximately 315 mL. Postvoid bladder volume is approximately 30 mL. Prostate is enlarged measuring approximately 66 mL. Urine cytologies are as follows: 05/07 atypical cells cytology 04/06 negative for high-grade urethral cell carcinoma. He denies any known workplace chemical exposure and or smoking history. He denies any bothersome urinary issues or concerns. He denies urinary urgency, urinary frequency, incontinence, nocturia, hematuria, dysuria, foul smelling urine, changes to urinary stream, flank pain, fever, and or chills. He is happy with his current voiding parameters. PSAs are as follows 10/05 1.7 06/07 2.4 We discussed at length potential causes of microscopic hematuria. Reviewed UA - persistant Microscopic hematuria. I discussed reasons for blood in the urine may include but are not limited to kidney stones, cancer in the urinary tract, BPH, kidney stone disease or inflammatory conditions of the urinary tract. I have discussed workup to include cystoscopy evaluation however patient declines at this time. He would like to continue with surveillance monitoring. All questions were answered. [facility] Surgical History No pertinent past surgical history Social History Housing: House Patient Tobacco Use Status: Never used Tobacco e-Cigarette/Vaping Use: Never Used Second Hand Smoke Exposure: No service: No Current occupational status: employed Current occupation: [employer] Current occupational exposures/hazards: Yes Cognitive needs: No Hearing needs: No Vision needs: No Review of Systems Const All systems reviewed & are unremarkable except as noted in HPI and below Eyes Reports no additional complaints ENT Reports no additional complaints Card Reports as per HPI Resp Reports no additional complaints GI Details: Patient reports having had recent imaging related to liver mass however MRI showed liver hemangioma Reports as per HPI Musc Reports no additional complaints Neuro Reports no additional complaints Psych Reports no additional complaints Endo Reports no additional complaints Leland/Lymph Reports no additional complaints Aller/Immun Reports no additional complaints Physical Exam Const General: cooperative, healthy appearing, comfortable, no acute distress, well developed, alert and awake Orientation/consciousness: patient oriented x3 Limitations: no limitations HEENT Head: Yes normal to inspection, Yes normocephalic and Yes atraumatic Ears: hearing grossly normal bilaterally Eyes General: appearance normal, both eyes and all related structures Neck Neck: Yes normal visual inspection and Yes trachea midline Chest Chest palpation & inspection: normal inspection of the chest Resp Effort & Inspection: normal respiratory effort and able to speak in complete sentences Cardio Rate: regular rate GI Inspection: Yes normal to inspection General: Yes no CVA tenderness Back/Spine/Pelvis Back: no CVA tenderness Skin General skin exam: no rashes or lesions noted Neuro General: patient oriented x3 Extrem General: Yes normal to inspection Psych Appearance: grossly normal and well kempt Mental Status: mental status grossly normal Speech and movement: Normal speech and movement present and Clear speech present Affect: normal affect Attitude: cooperative Thought process: Normal thought process present Thought content: Normal thought content present Insight: Fair insight present (Psych) Judgement: Fair judgement present (Psych) Results AMB Urinalysis, Automated UA Leukoctes 0 Meredith/uL Last Edit by Anny Massey on 06/28/24 08:02 UA Nitrite Negative Last Edit by Anny Massey on 06/28/24 08:02 UA Urobilinogen 0.2 mg/dL Last Edit by Anny Shilpa on 06/28/24 08:02 UA Protein 0 mg/dL Last Edit by Anny Shilpa on 06/28/24 08:02 UA pH 6.0 Last Edit by Anny Shilpa on 06/28/24 08:02 UA Blood 10 Jignesh/uL Last Edit by Anny Shilpa on 06/28/24 08:02 UA Specific [place] 1.010 Last Edit by Anny Shilpa on 06/28/24 08:02 UA Ketone Negative Last Edit by Anny Shilpa on 06/28/24 08:02 UA Bilirubin 0 mg/dL Last Edit by Anny Shilpa on 06/28/24 08:02 UA Glucose 0 mg/dL Last Edit by Anny Shilpa on 06/28/24 08:02 Results Reviewed Results Reviewed: Laboratory Last Values Urine pH (Auto) 6.0 06/28/24 07:55 Specific [place] (Auto) 1.010 06/28/24 07:55 Urine Protein (Auto) 0 mg/dL 06/28/24 07:55 Glucose (UA)(Auto) 0 mg/dL 06/28/24 07:55 Urine Ketones (Auto) Negative 06/28/24 07:55 Urine Blood (Auto) 10 Jignesh/uL 06/28/24 07:55 Urine Nitrite (Auto) Negative 06/28/24 07:55 Urine Bilirubin (Auto) 0 mg/dL 06/28/24 07:55 Urine Urobilinogen (Auto) 0.2 mg/dL 06/28/24 07:55 Leukocyte Esterase (Auto) 0 Meredith/uL 06/28/24 07:55 Assessment & Plan Assessment & Plan (1) Microscopic hematuria: Code(s): R31.29 - Other microscopic hematuria Category: Medical (2) Enlarged prostate: Code(s): N40.0 - Benign prostatic hyperplasia without lower urinary tract symptoms Category: Medical (3) Renal cyst: Code(s): N28.1 - Cyst of kidney, acquired Category: Medical Plan In office urinalysis results reviewed with the patient today; as noted above; will send for urine cytology. Discussed at length potential causes of microscopic hematuria. Discussed further microscopic hematuria workup with in office cystoscopy for further assessment evaluation versus surveillance monitoring. Patient would like to continue with surveillance monitoring at this time. Patient denies any bothersome urinary issues or concerns at this time. Patient reports be happy with current voiding parameters. Discussed at length potential causes for renal cyst. Follow-up in 1 year; or sooner with any issues, concerns, and or questions. Orders: Orders Urine Cytology Today R31.29 - Other microscopic hematuria Prostate Specific Antigen 1 Year N40.0 - Benign prostatic hyperplasia without lower urinary tract symptoms AMB Urinalysis Automated Today Z13.9 - Encounter for screening, unspecified Patient Instructions: The patient had an opportunity to ask questions regarding the treatment plan. All questions were answered. Physical exam, labs, and imaging were discussed and reviewed in detail. As well as risks, benefits, and discussion of treatment choices. No major barriers to understanding were identified. The patient expressed understanding and agreement with the above treatment plan. The patient was made aware they should contact our office by phone for worsening of their current condition, the appearance of new symptoms, or with any questions or concerns. Compliance is encouraged with any medications and follow up testing that is ordered. It is a privilege to be allowed the opportunity to participate in? your urological care.? Again, if you have any questions or concerns If you have any questions or concerns please do not hesitate to contact me. The office is [phone]. This note is constructed using voice recognition software. While every effort has been made to ensure accuracy director of sales support errors may have been included. Yours sincerely, RONDA Barajas Coding Level of Care Code Est Pt Level 3 (27836) Diagnoses Microscopic hematuria R31.29 Enlarged prostate N40.0 Renal cyst N28.1
== END 2024-06-28 08:23 | disposition home or self-care (01) ==
PROVIDERS: PCP Nurse Practitioner Family; Visit Provider Nurse Practitioner Family
DX: R31.29 Other microscopic hematuria (principal); N40.0 Benign prostatic hyperplasia without lower urinary tract symptoms; N28.1 Cyst of kidney, acquired; Z13.9 Encounter for screening, unspecified
CPT/HCPCS: 99213

== ENCOUNTER 2024-06-28 07:46 | Outpatient (REF) | payer OTHER, SELFPAY ==
[2024-06-28 16:32] LABS: Urine Cytology See Pathology rpt
== END 2024-06-28 07:47 | disposition home or self-care (01) ==
LOC: HO.LAB 07:46
PROVIDERS: PCP Nurse Practitioner Family; Visit Provider Nurse Practitioner Family
DX: R31.29 Other microscopic hematuria (principal)
CPT/HCPCS: 81003; 88112

== ENCOUNTER 2024-08-08 10:04 | Outpatient (AMB) | payer OTHER, SELFPAY ==
[2024-08-08 10:15] VITALS: BP 162/92; PULSE 55; RESP 18; TEMP 36.7; O2SAT 96; BMI 27.7
--- NOTE | 2024-08-08 10:15 | A.OFFPC_ITS ---
Vital Signs 08/08/24 10:15 08/08/24 10:35 Height 5 ft 8 in Weight 182 lb BMI 27.7 BP 162/92 H 138/84 Blood Pressure Location Rt brachial Lt brachial Position Sitting Sitting Respiration 18 Pulse 55 Pulse Source Pulse Oximeter Temp 98.1 F Temp Source Oral Pulse Oximetry (%) 96 Oxygen Delivery Method Room Air Intake Visit Reasons: 6 month follow up Intake Note: Pt is here today for his 6 month follow up. Allergies No Known Allergies Allergy (Verified 08/08/24 10:16) Medication List - Last Reconciled 08/08/24 by ANNA Lua- losartan 25 mg PO DAILY 90 days rosuvastatin 5 mg PO DAILY Tobacco use date assessed: 08/08/24 Dental Screening Dental Screen Date: 08/08/24 Did you have a dental visit in the last 12 months?: Yes Did you have a dental problem in the last 6 months where you did not have access to dental care?: No Was dental information given to patient?: Patient has dentist HPI 6 month follow up HPI Details Chief Complaint Follow-up appointment for blood pressure management. History of Present Illness The patient is a 64-year-old male presenting with a history of essential hypertension. He denies any symptoms such as shortness of breath, chest pain, edema, dizziness, or vision changes. The patient reported having stable blood pressure readings at home and is monitoring his condition regularly. The blood pressure management was initiated with losartan, and he has been adherent to the current regimen. There were no reported acute changes or exacerbations in his condition since the last visit. Historical management includes lifestyle modifications alongside pharmacotherapy, with regular monitoring and follow-ups to adjust the medication as needed. Social History Health Maintenance Review of Systems - Respiratory: Denies shortness of breat h. - Cardiovascular: Denies chest pain and edema. - Neurological: Denies dizziness. - Ophthalmologic: Denies visual disturba nces. Physical Exam General: Cooperative, healthy appearing, comfortable, no acute distress and well developed Orientation: Patient oriented x3 Limitations: No limitations Head: Normal to inspection Ears: Hearing grossly normal bilaterally Nose: Normal external nose present Face and sinus: Normal facial exam Eyes: Appearance normal, both eyes and all related structures Neck: Normal visual inspection and Yes full ROM Respiratory: Normal respiratory effort and able to speak in complete sentences. Clear to auscultation bilaterally Cardiovascular: Regular rate and rhythm. Normal S1 and S2. Very faint systolic murmur in the aortic region GI: Normal to inspection. Soft to palpation and nontender Skin: No rashes or lesions noted Neuro: Patient oriented x3 Extremities: Normal to inspection Results Plan 1. Systolic Murmur A faint systolic murmur was noted in the aortic region. Further investigation may be warranted depending on future changes or additional symptoms that may arise. 2. Essential Hypertension The patient's home blood pressure readings are stable. I recommend increasing losartan dosage from 25 mg to 51 mg to optimize blood pressure control. The patient should continue with home monitoring and return for laboratory assessments in the near future. Discussion Notes The management of the patient's hypertension was discussed, including the decision to adjust the losartan dosage to better control blood pressure levels. We reviewed the absence of concerning symptoms at present. I advised the patient on the importance of continued home monitoring, and a follow-up laboratory evaluation was planned. The nature of the systolic murmur was noted, and we will continue to observe for any changes that might require further investigation. Patient Instructions - Increase your losartan dosage as instr ucted to 51 mg daily. - Continue monitoring your blood pressur e at home regularly. - Schedule a laboratory evaluation in e upcoming weeks. - Report any new symptoms such as shortn ess of breath, chest pain, or dizziness immediately. - Keep track of your daily health and re port any changes during the next visit. [facility] Surgical History No pertinent past surgical history Social History Housing: House Patient Tobacco Use Status: Never used Tobacco e-Cigarette/Vaping Use: Never Used Second Hand Smoke Exposure: No service: No Current occupational status: employed Current occupation: [employer] Current occupational exposures/hazards: Yes Cognitive needs: No Hearing needs: No Vision needs: No Questionnaire PHQ-9 Over the last 2 weeks, how often have you been bothered by any of the following problems? 1. Little interest or pleasure in doing things: not at all 2. Feeling down, depressed, or hopeless: not at all 3. Trouble falling or staying asleep, or sleeping too much: not at all 4. Feeling tired or having little energy: not at all 5. Poor appetite or overeating: not at all 6. Feeling bad about yourself - or that you are a failure or have let yourself or your family down: not at all 7. Trouble concentrating on things, such as reading the newspaper or watching television: not at all 8. Moving or speaking so slowly that other people could have noticed. Or the opposite - being so fidgety or restless that you have been moving around a lot more than usual: not at all 9. Thoughts that you would be better off or of hurting yourself in some way: not at all Total score: 0 Depression Screening Interpretation: Negative Depression Screening Done: Yes 89839 - PHQ-9 Billing: Yes Source: Developed by Drs. Yovany Prather, Caitlyn Landis, Josué Pretty and colleagues, with an educational vernon from [employer]. Thrive Questionnaire Date Thrive assessed: 08/08/24 I am a: Patient What is your living situation today?: I have a steady place to live Within the past 12 months, did the food you bought not last and you didn't have the money to get more?: Never true Within the past 12 months, did you worry whether your food would run out before you got money to buy more?: Never true Do you have trouble paying for medicines?: No Do you have trouble getting transportation to medical appointments?: No Do you have trouble paying your heating and electricity bill?: No Do you have trouble taking care of your child, family member or friend?: No Do you have trouble with day-to-day activities such as bathing, preparing meals, shopping, managing finances, etc.?: No Are you currently unemployed and looking for a job?: No Are you interested in more education?: No Please select the resources that you would like help with: None Currently or been in a relationship where the following occur: No concerns reported THRIVE Score: 0 AUDIT C Alcohol Use Questionnaire (AUDIT-C) 1. How often do you have a drink containing alcohol?: 2-3 times a week 2. How many drinks containing alcohol do you have on a typical day when you are drinking?: 1 or 2 3. How often do you have six or more drinks on one occasion?: Never Total Score: 3 Score Reviewed/Action Taken: Yes GILDARDO-7 AMB Questionnaire GILDARDO-7 Date GILDARDO - 7 assessed: 08/08/24 Feeling nervous, anxious, or on edge: 1 = Several days Not being able to stop or control worryin = Several days Worrying too much about different things: 0 = Not at all Trouble relaxin = Not at all Being so restless that it is hard to sit still: 0 = Not at all Becoming easily annoyed or irritable: 0 = Not at all Feeling afraid as if something awful might happen: 1 = Several days Total GILDARDO-7 score (0-4 normal; 5-9 mild; 10-14 moderate; 15-21 severe): 3 Source: Developed by Drs. Yovany Prather, Caitlyn Landis, Josué Pretty and colleagues, with an educational vernon from [employer]. GILDARDO-7 Assessment Billing GILDARDO-7 Assessment Tool: GILDARDO-7 Assessment 42618 Physical exam (Primary Care) Vital Signs: Last Vital Signs Temp 98.1 F 08/08/24 10:15 Pulse 55 08/08/24 10:15 Resp 18 08/08/24 10:15 BP 138/84 08/08/24 10:35 Pulse Ox 96 08/08/24 10:15 Oxygen Delivery Method Room Air 08/08/24 10:15 BMI result Body Mass Index 27.7 Tobacco/Smoking Status: Tobacco use Status Tobacco use date assessed 08/08/24 08/08/24 10:18 Patient Tobacco Use Status Never used Tobacco 08/08/24 10:18 e-Cigarette/Vaping Use Never Used 08/08/24 10:18 PHQ-9: PHQ-9 Score PHQ-9: Total score 0 08/08/24 10:18 Depression Screening Interpretation: Negative Thrive Assessment: Date of Thrive Assessment Date Thrive assessed 08/08/24 08/08/24 10:18 Currently or been in a relationship where the following occur: No concerns reported Coding Level of Care Code Est Pt Level 3 (89997) Diagnoses Screening for colon cancer Z12.11 HTN (hypertension) I10 Additional Codes GILDARDO-7 Assessment Billing - GILDARDO-7 Assessment Tool: GILDARDO-7 Assessment 00474 ([id number]) PHQ-9 - 22490 - PHQ-9 Billing: Yes ([id number]) Assessment & Plan Assessment & Plan (1) Screening for colon cancer: Code(s): Z12.11 - Encounter for screening for malignant neoplasm of colon Category: Medical (2) HTN (hypertension): Code(s): I10 - Essential (primary) hypertension Category: Medical Plan . Orders: Orders TSH reflex Free T4 Today I10 - Essential (primary) hypertension Complete Blood Count Auto Diff Today I10 - Essential (primary) hypertension Comprehensive [place]. Panel Fast 1 Day I10 - Essential (primary) hypertension UA CC w/rflx Micro + Cult Today I10 - Essential (primary) hypertension Lipid Panel 1 Day I10 - Essential (primary) hypertension Referrals Gastroenterology Referral Z12.11 - Encounter for screening for malignant neoplasm of colon Medications: Changed From losartan 25 mg PO DAILY 90 days 90 tabs 0RF To losartan 50 mg PO DAILY 90 days 90 tabs 0RF
[2024-08-08 10:35] VITALS: BP 138/84
--- OUTSIDE RECORDS SUMMARY | 2024-08-08 11:13 | XMS_ITS | Patient Health Record ---
Author Organization [facility] Address [address] [place] [address] Care Team Providers Care Batch Maker Name Role Phone EUNICE CHAPMAN Primary Care Provider Yovany Tadeo [phone] REASON FOR REFERRAL No Information MEDICATIONS Medication [...] W/U Status Risk SNOMED Code Notes Problem Other specified pre-operative examination (V72.83) Active confirmed Pre-surgery evaluation (278172220) Problem Encounter for long-term (current) use of other medications (V58.69) Active confirmed Long-term current use of drug therapy (226147839) Problem Colon cancer screening (V76.51) Active confirmed Colon cancer screening (396609783) PLAN OF TREATMENT Future Test Test Name Order Date COLONOSCOPY 04/05/2014 Next Appt Details Provider Name:Yovany Kaiser , 08/23/2024 09:50:00 AM, [address], [address], [place], [address], Insurance Providers Payer Name Payer Address Payer Phone Subscriber Number Group Number Insured Name Patient Relationship to Insured Coverage Start Date Coverage End Date [facility] [address] [place] [phone] [id number] PABLO GARCIA Self - patient is the insured MEDICAL (GENERAL) HISTORY Medical History History ICD Code Denies [place],DM,CVA,Lung disease,renal dise ase Surgical History Surgery Date(Month/Year) Varicose vein stripping in the LE
== END 2024-08-08 10:52 | disposition home or self-care (01) ==
PROVIDERS: PCP Nurse Practitioner Family; Visit Provider Nurse Practitioner Family
DX: Z12.11 Encounter for screening for malignant neoplasm of colon (principal); I10 Essential (primary) hypertension

== ENCOUNTER → 2024-08-08 10:04 | Outpatient (BNVA) | payer OTHER, SELFPAY | PROVIDERS: PCP Nurse Practitioner Family; Visit Provider Nurse Practitioner Family | DX: I10 Essential (primary) hypertension (principal) | CPT/HCPCS: 96127 ==

== ENCOUNTER 2024-10-31 10:51 | Day surgery (SDC) | payer OTHER, SELFPAY ==
--- OUTSIDE RECORDS SUMMARY | 2024-10-05 14:08 | XMS_ITS ---
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 Name Role Phone KRISTENCA EUNICE Primary Care Provider Yovany Tadeo [phone] Allergies No Known Allergies REASON FOR VISIT Patient presents today for a colon screening Medications Medication SIG (Take, Route, Frequency, Duration) Notes Start Date End Date Status Rosuvastatin Calcium 5 MG TAKE 1 TABLET BY MOUTH DAILY Oral for 90 Days Active Losartan Potassium 50 MG TAKE 1 TABLET B Y MOUTH EVERY DAY Oral for 90 Days Activ e Problems Problem Type SNOMED Code ICD Code Onset Dates Problem Status W/U Status Risk Notes Problem Colon cancer screening (117987815) Colon cancer screening (Z12.11) Active confirmed Problem Fatty liver (773308617) Fatty liver (K76.0) Active confirmed Problem Elevated liver enzymes level (376655963) Elevated liver function tests (R94.5) Active confirmed Vital Signs Blood pressure systolic 111 mm Hg 08/24/19 25 Blood pressure diastolic 11 mm Hg 025 Height 67 in 08/23/2024 Weight 179 lbs 08/23/2024 BMI 28.03 kg/m2 08/23/2024 Procedures Procedure Date Ordered Date Performed Result Body Sit e COLONOSCOPY 08/23/2024 N/A Encounters Encounter Location Date Provider Diagnosis [facility] [address] [place] [address] 08/23/2024 Yovany Kaiser Colon cancer screening Z12.11 ; Fatty liver K76.0 and Elevated liver function tests R94.5 Assessments Encounter Date Diagnosis (ICD Code) Assessment Notes Treatment Notes Treatment Clinical Notes Section Notes 08/23/2024 Colon cancer screening (ICD-10 - Z12.11) Overall, Abner appears quite well. I did recommend a follow-up colonoscopy for further screening purposes given his age, excellent clinical appearance, and his last exam being just over 10 years ago. We did review the rationale for this in regard to colon cancer prevention. Full consent has been obtained for this, including risks of bleeding and perforation. The procedure will be done with monitored anesthesia care. In regard to the reported fatty liver seen on his MRI and the minimally elevated LFTs we did review that in detail today. Given his excellent clinical appearance and no stigmata of liver disease on his exam, I do not think any further evaluation of that is required. We did review that maintaining good control of his cholesterol and minimizing alcohol intake will be the best way to treat this for the time being. I do not think a liver biopsy, medical treatment, nor any particular liver workup is required given the clinical history and just minimally elevated liver enzymes at this time. However, I did advise him to continue to follow up with you to have periodic LFTs and to be referred back to see me if they begin climbing to more than 2-3 times normal. Abner was comfortable with this plan. Thank you again for allowing me to participate in Abner's care. I shall continue to keep you advised of his progress. 08/23/2024 Fatty liver (ICD-10 - K76.0) Overall, Abner appears quite well. I did recommend a follow-up colonoscopy for further screening purposes given his age, excellent clinical appearance, and his last exam being just over 10 years ago. We did review the rationale for this in regard to colon cancer prevention. Full consent has been obtained for this, including risks of bleeding and perforation. The procedure will be done with monitored anesthesia care. In regard to the reported fatty liver seen on his MRI and the minimally elevated LFTs we did review that in detail today. Given his excellent clinical appearance and no stigmata of liver disease on his exam, I do not think any further evaluation of that is required. We did review that maintaining good control of his cholesterol and minimizing alcohol intake will be the best way to treat this for the time being. I do not think a liver biopsy, medical treatment, nor any particular liver workup is required given the clinical history and just minimally elevated liver enzymes at this time. However, I did advise him to continue to follow up with you to have periodic LFTs and to be referred back to see me if they begin climbing to more than 2-3 times normal. Abner was comfortable with this plan. Thank you again for allowing me to participate in Abner's care. I shall continue to keep you advised of his progress. 08/23/2024 Elevated liver function tests (ICD-10 - R94.5) Overall, Abner appears quite well. I did recommend a follow-up colonoscopy for further screening purposes given his age, excellent clinical appearance, and his last exam being just over 10 years ago. We did review the rationale for this in regard to colon cancer prevention. Full consent has been obtained for this, including risks of bleeding and perforation. The procedure will be done with monitored anesthesia care. In regard to the reported fatty liver seen on his MRI and the minimally elevated LFTs we did review that in detail today. Given his excellent clinical appearance and no stigmata of liver disease on his exam, I do not think any further evaluation of that is required. We did review that maintaining good control of his cholesterol and minimizing alcohol intake will be the best way to treat this for the time being. I do not think a liver biopsy, medical treatment, nor any particular liver workup is required given the clinical history and just minimally elevated liver enzymes at this time. However, I did advise him to continue to follow up with you to have periodic LFTs and to be referred back to see me if they begin climbing to more than 2-3 times normal. Abner was comfortable with this plan. Thank you again for allowing me to participate in Abner's care. I shall continue to keep you advised of his progress. Plan Of Treatment Pending Test Test Name Order Date COLONOSCOPY 08/23/2024 Next Appt Details Follow Up: prn, Reason: Provider Name:Yovany Kaiser , 10/31/2024 12:10:00 PM, [address] [place] [address] , [place], [place], [phone], Progress Notes * ABNER MORRIS PDOB:[birth year] (64 yo M)Acc No.[id number]:08/23/2024 Progress Notes Patient:?YAEL MORRISJUAN C P Provider:?Yovany Kaiser MD :[id number]???Age:64 Y???Sex:Male Brendan e:08/23/2024 Address:[address] [place] [address] Rosana REYES [id number] Pcp:EUNICE CHAPMAN Subjective: * Chief Complaints: * ???Patient presents today fo r a colon screening * HPI: ???incontinence:? I saw Abner in consultation today in regard to further evaluation of his need for colorectal cancer screening, as well as some underlying history of fatty liver. I last saw Abner in June 2014, at which time he underwent a negative screening colonoscopy other than the removal of a small hyperplastic polyp. He presently feels very well. He enjoys a good appetite, without any significant heartburn or dysphagia. His bowel movements been regular and without any signs of bleeding. He denies abdominal pain, jaundice, nor unintentional weight loss. He denies any known family history of colorectal cancer. He has had a history of some fatty liver described on a MRI back in 2022. He was also noted to have some benign hemangiomas on that scan. His most recent liver profile from May 2024 revealed an AST of 43 and ALT of 66, with a normal total bilirubin, albumin, and alk phos. CBC with platelet count was normal at that time as well. He does have a history of hyperlipidemia for which he is on a statin and does describe having a couple of beers about 5 times per week. He has never had any problems with jaundice, pruritus, increasing abdominal girth, edema, nor fatigue. He denies any known family history of liver disease. * ROS:?General/Constitutional:?Change in appetite?denies.?Chills?denies.?Fatigue?denies.?Ophthalmologic:?Comments?all negative.?ENT:?Comments?all negative.?Respiratory:?hemoptysis?denies.?Cough?denies.?Cardiovascular:?Chest pain?denies.?Orthopnea?denies.?Gastrointestinal:?Comments?See HPI for details.?Genitourinary:?Hematuria?denies.?Dysuria?denies.?Musculoskeletal:?Painful joints?denies.?Weakness?denies.?Skin:?Itching?denies.?Rash?denies.?Neurologic:?Headache?denies.?Seizures?denies.?Psychiatric:?Comments?all negative.? * Medical History:? * Surgical History:?Varicose v ein stripping in the LE's * Hospitalization/Major Diagno stic Procedure:?No Hospitalization History. * Family History:?Father: arron macdonald 85 yrs, diagnosed with HTN (hypertension).?Mother: 63 yrs, bone cancer.?Paternal Grand Mother: , diagnosed with Heart disease.? No colorectal cancer. * Social History:?Tobacco Use:?Tobacco Use/Smoking?Are you a: nonsmoker.?Drugs/Alcohol:?Alcohol Screen?Points: 3, Interpretation: Negative.?Miscellaneous:?Marital status: . 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 ???Nonsmoker; occ alcohol--2 beers about 5 times a week. * Medications:?TakingLosartan Potassium 50 MG Tablet TAKE 1 TABLET BY MOUTH EVERY DAY Oral Rosuvastatin Calcium 5 MG Tablet TAKE 1 TABLET BY MOUTH DAILY Oral Taking Losartan Potassium 50 MG Tablet TAKE 1 TABLET BY MOUTH EVERY DAY Oral Taking Rosuvastatin Calcium 5 MG Tablet TAKE 1 TABLET BY MOUTH DAILY Oral DiscontinuedFish Oil 306 MG Capsule Orally MoviPrep 100 GM Solution Reconstituted as directed Orally as directed Medication List reviewed and reconciled with the patientDiscontinued Fish Oil 306 MG Capsule Orally Discontinued MoviPrep 100 GM Solution Reconstituted as directed Orally as directed Medication List reviewed and reconciled with the patient * Allergies:?N.K.D.A.yes[Aller gies Verified] Objective: * Vitals:?Wt:179lbs, Ht: 67 in , BMI:28.03Index, BP:111/11mm Hg, Wt-k.19. * Examination: ???General Examination: ?GENERAL APPEARANCE:?pleasant, well nourished, well developed, in no acute distress.?EYES:?sclera non-icteric.?ORAL CAVITY:?mucosa moist.?NECK/THYROID:?no cervical lymphadenopathy, neck supple.?SKIN:?nonjaundiced, no spider angiomata.?HEART:?S1, S2 normal.?LUNGS:?clear to auscultation bilaterally.?ABDOMEN:?normal bowel sounds, no guarding or rigidity, no guarding or rigidity, no masses palpable, soft, nontender, nondistended.?EXTREMITIES:?no edema.?NEUROLOGIC:?alert and oriented.? Assessment: * Assessment: 1.?Fatty liver - K76.0 (Prim flex)???2.?Colon cancer screening - Z12.11???3.?Elevated liver function tests - R94.5??? Overall, Abner appears yoon te well. I did recommend a follow-up colonoscopy for further screening purposes given his age, excellent clinical appearance, and his last exam being just over 10 years ago. We did review the rationale for this in regard to colon cancer prevention. Full consent has been obtained for this, including risks of bleeding and perforation. The procedure will be done with monitored anesthesia care. In regard to the reported fatty liver seen on his MRI and the minimally elevated LFTs we did review that in detail today. Given his excellent clinical appearance and no stigmata of liver disease on his exam, I do not think any further evaluation of that is required. We did review that maintaining good control of his cholesterol and minimizing alcohol intake will be the best way to treat this for the time being. I do not think a liver biopsy, medical treatment, nor any particular liver workup is required given the clinical history and just minimally elevated liver enzymes at this time. However, I did advise him to continue to follow up with you to have periodic LFTs and to be referred back to see me if they begin climbing to more than 2-3 times normal. Abner was comfortable with this plan. Thank you again for allowing me to participate in Abner's care. I shall continue to keep you advised of his progress. Plan: * Treatment: * Procedure Codes:?78537 DIAGN OSTIC [id number] COLORECTAL CA SCREEN DOC [id number] TOBACCO [id number] BP SCR NOT PRFRM REC REASON [id number] RCMND FLW-UP 10 YRS DOCD * Preventive Medicine:? ??Counseling:?Care goal follow-up plan:?Above Normal BMI Follow-up?Giving encouragement to exercise,?BMI management provided?Yes.? * Follow Up:?prn * * Sign off status: Completed true * Provider:?Yovany Kaiser MD Date:? 025 Generated for Marcusi hoa/Carey/eTransmamy on:?10/05/2024 02:08 PM EDT History and Physical Notes * Examination Category Sub-Category Detail Notes Category Not es General Examination GENERAL APPEARANCE: pleasant , well nourished, well developed, in no acute distress HEAD: EYES: sclera non-icteric EARS: NOSE: THROAT: NECK/THYROID: no cervical lymphade nopathy, neck supple HEART: S1, S2 normal CHEST: LUNGS: clear to auscultatio n bilaterally ABDOMEN: normal bowel sounds, no guarding or rigidity, no guarding or rigidity, no masses palpable, soft, nontender, nondistended NEUROLOGIC: alert and oriented SKIN: nonjaundiced, no spi christine angiomata EXTREMITIES: no edema PERIPHERAL PULSES: BACK: BREASTS: MUSCULOSKELETAL: MALE GENITOURINARY: LYMPH NODES: RECTAL EXAM: FEMALE GENITOURINARY: ORAL CAVITY: mucosa moist
--- OUTSIDE RECORDS SUMMARY | 2024-10-05 14:08 | XMS_ITS | Patient Health Record ---
Author Organization [facility] Address [address] [place] [phone] Care Team Providers Care Chaplain Name Role Phone KRISTINSHANE EUNICE Primary Care Provider Yovany Tadeo [phone] Allergies No Known Allergies Reason For Referral No Information Medications Medication SIG (Take, Route, Frequency, Duration) [...] Status Risk Notes Problem Colon cancer screening (532606560) Colon cancer screening (Z12.11) Active confirmed Problem Fatty liver (801272456) Fatty liver (K76.0) Active confirmed Problem Elevated liver enzymes level (686955328) Elevated liver function tests (R94.5) Active confirmed Vital Signs Blood pressure diastolic 11 mm Hg 08/23/2024 Height 67 in 08/23/2024 Blood pressure systolic 111 mm Hg 08/23/2024 Weight 179 lbs 08/23/2024 BMI 28.03 kg/m2 08/23/2024 Procedures Procedure Date Ordered Date Performed Result Body Sit e COLONOSCOPY 08/23/2024 N/A Encounters Encounter Location Date Provider Diagnosis [facility] [address] [place] [phone] 08/23/2024 Yovany Kaiser Colon cancer screening Z12.11 [...] Test Test Name Order Date COLONOSCOPY 08/23/2024 Future Test Test Name Order Date COLONOSCOPY 04/05/2014 Next Appt Details Provider Name:Yovany Hess Awilda , 10/31/2024 12:10:00 PM, [address] [place] [address] , [place], [place], [phone], Insurance Providers Payer Name Payer Address Payer Phone Subscriber Number Group Number Insured Name Patient Relationship to Insured Coverage Start Date Coverage End Date [facility] [address] [place] [address] [id number] YOLIE ABNER Davis Self - patient is the insured Medical (General) History Medical History History ICD Code Denies [place],DM,CVA,Lung disease,renal dise ase hypercholesterolemia hypertension Fatty liver seen on MRI in 2022 with ass ociated benign hemangiomas Screening colonoscopy in Jun was negative except for a hyperplastic polyp Surgical History Surgery Date(Month/Year) Varicose vein stripping in the
[2024-10-27 14:14] VITALS: BMI 28.0
--- NOTE | 2024-10-28 09:24 | HO.ANESPROP2 ---
Documented by User: Palak Bond NP 10/28/24 09:25 HPI - Anesthesia Eval Consult details Narrative: 64yo M for Colonoscopy PMFSH Active Problems Active Problems: All Active Problems Fatty liver (Acute) Screening for colon cancer (Acute) Enlarged prostate (Acute) Renal cyst (Acute) Microscopic hematuria (Acute) Liver mass (Acute) Dyslipidemia (Acute) Elevated liver enzymes (Acute) Aortic dilatation (Acute) Systolic murmur (Acute) HTN (hypertension) (Acute) Screening for prostate cancer (Acute) Physical exam (Acute) Past Medical History Medical History Systolic murmur Aortic dilatation HTN (hypertension) Renal cyst Enlarged prostate Dyslipidemia Fatty liver Surgical History Surgical History H/O colonoscopy Hx of varicose vein ligation and stripping Social History Social History Household Members: Spouse Housing: House Are you a primary manager respiratory care to a significant other at home: No Do you presently have visiting nurse or other home services: No Patient Tobacco Use Status: Never used Tobacco e-Cigarette/Vaping Use: Never Used Second Hand Smoke Exposure: No Have you been hit, kicked, punched, or otherwise hurt by someone within the past year? If so, by whom?: No Are you DNR?: No Advance Directives: No Advance Directives Information Provided: Yes Poor oral hygiene: No service: No Current occupational status: employed Current occupation: [employer] Current occupational exposures/hazards: Yes Cognitive needs: No Hearing needs: No Vision needs: No Meds Allergies Allergy/AdvReac Type Severity Reaction Status Date / Time No Known Allergies Allergy Verified 10/31/24 11:13 Exam Height,Weight and Vital Signs: Height 5 ft 7 in Weight 81.193 kg Narrative Narrative: ECHO 05/2024 Conclusions: - The left ventricular systolic function is normal. The calculated ejection fraction is 59% by biplane method. - There is mild aortic valve regurgitation. - There is mild dilatation of the ascending aorta measuring 4.20 cm. Assessment and Plan Assessment Anesthesia Assessment: Chart Reviewed Documented by User: Ramonita Heller MD 10/31/24 13:11 PMFSH Past Medical History Medical History Systolic murmur Aortic dilatation HTN (hypertension) Renal cyst Enlarged prostate Dyslipidemia Fatty liver Surgical History Surgical History H/O colonoscopy Hx of varicose vein ligation and stripping History of Problems with Anesthesia: No Social History Social History Household Members: Spouse Housing: House Are you a primary manager respiratory care to a significant other at home: No Do you presently have visiting nurse or other home services: No Patient Tobacco Use Status: Never used Tobacco e-Cigarette/Vaping Use: Never Used Second Hand Smoke Exposure: No Have you been hit, kicked, punched, or otherwise hurt by someone within the past year? If so, by whom?: No Are you DNR?: No Advance Directives: No Advance Directives Information Provided: Yes Poor oral hygiene: No service: No Current occupational status: employed Current occupation: [employer] Current occupational exposures/hazards: Yes Cognitive needs: No Hearing needs: No Vision needs: No Meds Allergies Allergy/AdvReac Type Severity Reaction Status Date / Time No Known Allergies Allergy Verified 10/31/24 11:13 Exam Airway Mallampati Class: II TM Dist: >3cm Neck ROM: Full Loose/Missing/Broken Teeth: No Heart: RRR Lungs: CTA Assessment and Plan Assessment Anesthesia Assessment: Anesthesia Plan Discussed Final Anesthetic Review History of Problems with Anesthesia: No NPO: Yes ASA Class: II Final Preanesthetic Review: Meds/Allgs Chart Reviewed, Consent Obtained/Reviewed and Anes Risks/Benef Reviewed Patient Risk: Low Procedure Risk: Low Anesthetic Plan Anesthetic Plan: MAC: Disposition: Standard PACU
[2024-10-31 11:11] VITALS: BMI 28.0
[2024-10-31] MEDS: Lactated Ringers 1,000 ML 100 ML IVCONT (11:16)
[2024-10-31 11:24] VITALS: BP 176/88; PULSE 53; RESP 18; TEMP 36.8; O2SAT 100
[2024-10-31 11:30] VITALS: BP 154/86
[2024-10-31 13:38] VITALS: BP 90/51; PULSE 55; RESP 18; TEMP 36.2; O2SAT 98
--- NOTE | 2024-10-31 13:42 | P.BOP_ITS ---
Brief Operative Note Date of Service: 10/31/24 Pre-op diagnosis: Screening Post-op diagnosis: other (Polyps) Procedure: Colonoscopy to the cecum and TI with bx/removal of polyps Surgeon: Yovany Kaiser MD Anesthesia: MAC Was an Paper Plate Machine Tender used for this Procedure?: No Estimated blood loss (mL): 2.0 Pathology: other (A. Polyp at 60cm B. Polyp at 20cm) Condition: stable Disposition: PACU
[2024-10-31 13:53] VITALS: BP 147/84; PULSE 50; RESP 18; O2SAT 99
--- NOTE | 2024-10-31 14:02 | OP_ITS ---
DATE OF SERVICE: 10/31/2024 SURGEON: Yovany Kaiser MD INDICATIONS: The patient presents for evaluation of colorectal cancer screening. Full consent obtained from him for this, including risks of bleeding and perforation. PREOPERATIVE DIAGNOSIS: Colorectal cancer screening. POSTOPERATIVE DIAGNOSIS: PROCEDURE PERFORMED: Colonoscopy to cecum and terminal ileum with biopsy and removal of polyps. ESTIMATED BLOOD LOSS: COMPLICATIONS: ANESTHESIA: Medication used; monitored anesthesia care. ASSISTANTS: SPECIMENS: POSTOPERATIVE DIAGNOSES: Colorectal cancer screening, small colon polyps, diverticulosis, and internal hemorrhoids. DESCRIPTION OF PROCEDURE: The patient was placed in the left lateral decubitus position. The digital rectal exam revealed no abnormalities. The Olympus videopediatric colonoscope was entered into the rectum and advanced easily to the cecum. Once in the cecum, I did identify normal-appearing cecal pouch with appendiceal orifice and normal-appearing ileocecal valve. The terminal ileum was cannulated and appeared normal. The scope was withdrawn back in the colon. The entire cecum and ileocecal valve appeared normal. Scope was slowly withdrawn assessing all mucosal surfaces carefully. Preparation was excellent. At 60cm and at 20 cm there were flat 4 mm polyps which were all biopsied and completely removed with cold biopsy forceps. I did not visualize any other polyps, colitis, nor angiodysplasia. There was a mild amount of sigmoid diverticulosis. In the rectum, scope was retroflexed visualizing internal hemorrhoids. Rectal mucosa appeared normal. The scope was straightened and withdrawn from the patient. He tolerated the procedure well and was returned to the recovery area in stable condition. IMPRESSION: 1. Small colon polyps. 2. Diverticulosis. 3. Internal hemorrhoids. PLAN: The results of the biopsies will be checked. If either of these are tubular adenoma, I would recommend a followup coloscopy in 5 years. If they are both hyperplastic, I would recommend a followup colonoscopy in 10 years for further screening. Yovany Kaiser MD RMW/MODL / [id number] MTDD
[2024-10-31 14:08] VITALS: BP 152/91; PULSE 56; RESP 18; TEMP 36.1; O2SAT 99
== END 2024-10-31 14:27 | disposition home or self-care (01) ==
PROVIDERS: PCP Nurse Practitioner Family; Visit Provider Internal Medicine
PROC: 0DJD8ZZ Inspection of Lower Intestinal Tract, Via Natural or Artificial Opening Endoscopic (ICD-10-PCS; CPT 45378; principal; 2024-10-31 12:10)
DX: Z12.11 Encounter for screening for malignant neoplasm of colon (principal); K63.5 Polyp of colon; K57.30 Diverticulosis of large intestine without perforation or abscess without bleeding; K64.8 Other hemorrhoids; K76.0 Fatty (change of) liver, not elsewhere classified; R94.5 Abnormal results of liver function studies; I10 Essential (primary) hypertension; E78.00 Pure hypercholesterolemia, unspecified; Z79.899 Other long term (current) drug therapy
CPT/HCPCS: 45380; 88305; J2003; J2704

== ENCOUNTER → 2025-06-12 14:51 | Outpatient (REF) | payer OTHER, SELFPAY ==
--- OUTSIDE RECORDS SUMMARY | 2024-10-31 07:10 | XMS_ITS ---
Author Organization [facility] Address [address] [place] [phone] Care Team Providers Care Sorting Grapple Operator Name Role Phone KRISTINSHANE EUNICE Primary Care Provider Yovany Tadeo [phone] REASON FOR VISIT screening Encounters Encounter Location Date Provider Diagnosis [facility] [address] [place] [phone] 10/31/2024 Yovany Kaiser Colon cancer scree nevaeh Z12.11 ; Adenomatous colon polyp D12.6 ; Diverticulosis of large intestine without perforation or abscess without bleeding K57.30 and Other hemorrhoids K64.8 Assessments Encounter Date Diagnosis (ICD Code) Assessment Notes Treatment Notes Treatment Clinical Notes Section Notes 10/31/2024 Colon cancer screening (ICD-10 - Z12.11) 10/31/2024 Adenomatous colon polyp (ICD-10 - D12.6) 10/31/2024 Diverticulosis of large intestine without perforation or abscess without bleeding (ICD-10 - K57.30) 10/31/2024 Other hemorrhoids (ICD-10 - K64.8) Plan Of Treatment No Information Progress Notes * PABLO MORRIS PDOB:[birth year] (65 yo M)Acc No.[id number]:10/31/2024 COLON WITH MAC Patient: Katlin PABLO SAUCEDA Provider: Kasey Kaiser MD :1960 A ge:64 Y S ex:Male Date:10/31/2024 Address:[address] [place], [place] [phone] Pcp:EUNICE CHAPMAN Subjective: * Chief Complaints: * S creening Assessment: * Assessment: 1. C olon cancer screening - Z12.11 (Primary) 2 . A denomatous colon polyp - D12.6 3 . D iverticulosis of large intestine without perforation or abscess without bleeding - K57.30 4 . O ther hemorrhoids - K64.8 Plan: * Procedure Codes: 4 5380 COLONOSCOPY AND BIOPSY, Modifiers: PT Billing Information: * Procedure Codes: 60331 COLONOSCOPY AND BIOPSY. Modifiers: PT * The named appointment provid er may or may not be the originator of this progress note, and it is not deemed complete until electronically signed by the appointment provider. Sign off status: Pending * Provider: Kasey Kaiser MD Date: 0 10/31/2024 Generated for Serafin camara/Carey/Pbitting on: 1 05:12 PM EST
--- OUTSIDE RECORDS SUMMARY | 2025-06-12 17:13 | XMS_ITS | Patient Health Record ---
Author Organization [facility] Address [address] [place] [address] Care Team Providers Care Brick Yard Hand Name Role Phone ALMAAmairani EUNICE Primary Care Provider Yovany Tadeo [phone] Allergies No Known Allergies Results Component Value Reference Range Notes Pathology (Not yet reviewed by provider) Interpretation: Performing Lab:[facility], [address] [place] [id number] Notes/Report: Reason For Referral No Information Medications Medication SIG (Take, Route, Frequency, Duration) Notes Start Date End Date Status Rosuvastatin Calcium 5 MG Tablet TAKE 1 TABLET BY MOUTH DAILY Oral; Duration: 90 Days Active Losartan Potassium 50 MG Tablet TAKE 1 TABLET BY MOUTH EVERY DAY Oral; Duration: 90 Days Active Social History Social History Additional Details Category Social Info Options Details Miscellaneous: Marital status: 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 [employer] Section Notes: Nonsmoker; occ alcohol Nonsmoker; occ alcohol--2 be ers about 5 times a week Problems Problem Type SNOMED Code ICD Code Onset Dates Problem Status W/U Status Risk Notes Problem Colon cancer screening (943418061) Colon cancer screening (Z12.11) Active confirmed Problem Fatty liver (376888441) Fatty liver (K76.0) Active confirmed Problem Elevated liver enzymes level (247563571) Elevated liver function tests (R94.5) Active confirmed Vital Signs Blood pressure diastolic 11 mm Hg 08/23/2024 Height 67 in 08/23/2024 Blood pressure systolic 111 mm Hg 08/23/2024 Weight 179 lbs 08/23/2024 BMI 28.03 kg/m2 08/23/2024 Procedures Procedure Date Ordered Date Performed Result Body Sit e COLONOSCOPY 08/23/2024 N/A Encounters Encounter Location Date Provider Diagnosis [facility] [address] [place] [phone] 10/31/2024 Yovany Kaiser Colon cancer screeni ng Z12.11 ; Adenomatous colon polyp D12.6 ; Diverticulosis of large intestine without perforation or abscess without bleeding K57.30 and Other hemorrhoids K64.8 [facility] [address] [place] [address] 08/23/2024 Yovany Kaiser Colon cancer screeni ng Z12.11 ; Fatty liver K76.0 and Elevated liver function tests R94.5 Assessments Encounter Date Diagnosis (ICD Code) Assessment Notes Treatment Notes Treatment Clinical Notes Section Notes 10/31/2024 Colon cancer screening (ICD-10 - Z12.11) 10/31/2024 Adenomatous colon polyp (ICD-10 - D12.6) 08/23/2024 Colon cancer screening (ICD-10 - Z12.11) [...] to keep you advised of his progress. 10/31/2024 Diverticulosis of large intestine without perforation or abscess without bleeding (ICD-10 - K57.30) 10/31/2024 Other hemorrhoids (ICD-10 - K64.8) Plan Of Treatment Pending Test Test Name Order Date COLONOSCOPY 08/23/2024 Pathology 10/31/2024 Future Test Test Name Order Date COLONOSCOPY 04/05/2014 Insurance Providers Payer Name Payer Address Payer Phone Subscriber Number Group Number Insured Name Patient Relationship to Insured Coverage Start Date Coverage End Date [facility] [address] [place] [address] [id number] MARIANGELABNER MAGUIRE Self - patient is the insured Medical (General) History Medical History History ICD Code Denies [place],DM,CVA,Lung disease,renal dise ase hypercholesterolemia hypertension Fatty liver seen on MRI in 2022 with ass ociated benign hemangiomas Screening colonoscopy in Jun was negative except for a hyperplastic polyp Surgical History Surgery Date(Month/Year) Varicose vein stripping in the 's
== END ==
LOC: HO.CARD 14:51
PROVIDERS: Visit Provider Nurse Practitioner Family
DX: I77.819 Aortic ectasia, unspecified site (principal)
CPT/HCPCS: 93306

== ENCOUNTER → 2025-06-12 14:53 | Outpatient (BNV) | payer OTHER, SELFPAY | PROVIDERS: Visit Provider Internal Medicine | DX: I27.20 Pulmonary hypertension, unspecified (principal); I77.810 Thoracic aortic ectasia | CPT/HCPCS: 93306 ==